=== PATIENT | female | born 1955 | race Caucasian/White ===

== ENCOUNTER 2016-12-28 09:04 | Outpatient (CLI) | payer MEDICAID ==
[~2016-12-28] VITALS: Ht 154.9 cm; Wt 62.7 kg
--- NOTE | ~2016-12-28 | HEMODYNAMI ---
PATIENT:SARAH HARRIS MEDICAL RECORD: [id number] : 59 LOCATION:[facility] ADMISSION DATE: 12/28/16 Generatedon:12/28/201614:38 Patient name: SARAH HARRIS Patient #: [id number] SSN: : 1955 Date of study: 12/28/2016 Page: Of Hemodynamic Procedure Report Patient Data Patient Demographics Procedure consent was obtained First Name: SARAH Gender: Female Last Name: STEVEN : 1955 Middle Initial: H Age: 61 year(s) Patient #: [id number] Race: Additional ID: [id number] Contact details Address: [address] [place] [address] State: [facility]: [place] Zip code: [address] Past Medical History History of disease Date Diagnosis Comments CAD Hypertension Allergies Allergen Reaction Date Comments Reported Penicillins 01/05/2015 Codeine 01/05/2015 Other 06/25/2016 acetominophen, allergy cephalexin,propoxyphene, HCT2,irbesaitan. Other 06/25/2016 Darvocet allergy Other 06/25/2016 Avelox allergy Other 01/05/2015 keflex allergy Admission Admission Data Admission Date: 12/28/2016 Admission Time: 9:04 Height (in.): 60 BSA: 1.59 (m2) Height (cm.): 152.4 BMI: 26.95 (kg/m2) Weight (lbs.): 138 Weight (kg.): 62.6 Lab Results Lab Result Date: 12/28/2016 Lab Result Time: 0:00 Biochemistry Name Units Result Min Max BUN mg/dl 10 --(-*--)-- 7 18 Creatinine mg/dl 0.8 --(-*--)-- 0.6 1.3 CBC Name Units Result Min Max Hemoglobin g/dl 15.3 --(-*--)-- 13.5 17.5 Procedure Procedure Types Cath Procedure Diagnostic Procedure LHC LH w/Coronaries PCI Procedure Coronary Stent Initial Procedure Description Procedure Date Procedure Date: 12/28/2016 Procedure Start Time: 14:06 Procedure End Time: 14:38 Procedure Staff Name Function Yung Blair MD Performing Physician Francis Dexter RT Scrub Leelee Lamas RN Nurse Yusef Ace RT Monitor Chace Connors RN Receiving Weigher Procedure Data Cath Procedure Fluoroscopy Diagnostic fluoroscopy Total fluoroscopy Time: 4.1 time: 4.1 min min Diagnostic fluoroscopy Total fluoroscopy dose: 540 dose: 540 mGy mGy Contrast Material Contrast Material Type Amount (ml) Isovue 300 93 Entry Location Entry Primary Successful Side Size Upsize Upsize Entry Closure Succes sful Closure Location (Fr) 1 (Fr) 2 (Fr) Remarks Device Remarks Femoral Right 5 Fr 6 Fr Vascade artery Short Closure System Estimated blood loss: 10 ml Diagnostic catheters Device Type Used For End Catheter Placement Cordis 5Fr Pigtail LV Angiography Catheter (MP) Cordis 5Fr JL 4.0 Coronary Catheter (MP) Angiography Cordis 5Fr 3DRC Catheter Coronary (MP) Angiography Procedure Complications No complications Procedure Medications Medication Administration Route Dosage Oxygen NC 2 l/min Benadryl I.V. 50 mg Lidocaine 2% added to field 20 Heparin Flush Bag added to field 2 bags (1000units/500ml NS) Versed I.V. 1 mg Fentanyl I.V. 100 mcg Versed I.V. 1 mg Fentanyl I.V. 100 mcg Versed I.V. 1 mg Fentanyl I.V. 100 mcg Heparin Bolus I.V. 4000 units Versed I.V. 1 mg Fentanyl I.V. 50 mcg Versed I.V. 1 mg Fentanyl I.V. 50 mcg Versed I.V. 1 mg 0.9% NaCl I.V. bolus 500 ml Hemodynamics Rest BSA: 1.59 (m2) HGB: 15.3 (g/dl) O2 Consumption: Estimated: 145.18 (ml/min) O2 Co nsumption indexed: Estimated:91.31 (ml/min/m) Heart Rate: 60 (bpm) Snapshots Pre Cath Intra NCS Post Cath Vital Signs Time Heart Resp SPO2 etCO2 [id number] NIBP (mmHg) Rhythm Pain Status Ria tion Rate (ipm) (%) (mmHg) (mmHg) Level (bpm) 13:49:15 62 16 96 0 0 171/92(145) NSR 5 (11) , 10(A ) Very distressing 13:53:31 63 19 98 0 0 153/90(139) NSR 5 (11) , 10(A ) Very distressing 13:57:47 73 20 96 0 0 160/86(138) NSR 5 (11) , 10(A ) Very distressing 14:02:05 71 16 95 0 0 119/69(103) NSR 5 (11) , 10(A ) Very distressing 14:06:15 77 14 98 0 0 117/70(99) NSR 5 (11) , 10(A ) Very distressing 14:10:27 66 16 98 0 0 115/65(95) NSR 5 (11) , 10(A ) Very distressing 14:14:35 70 16 95 0 0 102/70(93) NSR 0 (11) , No 9(A) pain 14:18:42 77 17 96 0 0 94/55(77) NSR 0 (11) , No 9(A) pain 14:22:50 66 16 97 0 0 92/51(64) NSR 0 (11) , No 9(A) pain 14:26:58 67 16 98 0 0 83/45(75) NSR 0 (11) , No 9(A) pain 14:31:02 69 16 98 0 0 86/46(61) NSR 0 (11) , No 10(A ) pain 14:37:19 0 0 106/66(73) NSR 0 (11) , No 10(A ) pain Medications Time Medication Route Dose Verified Delivered Reason Notes Effectiveness by by 13:47:56 Oxygen NC 2 Yung Buffie used for l/min Johnnie Lamas RN procedure 13:48:04 Benadryl I.V. 50 mg Yung Buffie used for Johnnie Lamas RN procedure 13:57:21 Lidocaine 2% added 20ml Yung Buffie for local to vial Johnnie Lamas RN anesthetic field 13:57:27 Heparin Flush added 2 Yung Buffie used for Bag to bags Johnnie Lamas RN procedure (1000units/500ml field NS) 14:03:09 Versed I.V. 1 mg Yung Buffie for sedation Johnnie Lamas RN 14:03:16 Fentanyl I.V. 100 Yung Buffie for sedation mcg Johnnie Lamas RN 14:06:19 Versed I.V. 1 mg Yung Buffie for sedation Johnnie Lamas RN 14:06:22 Fentanyl I.V. 100 Yung Buffie for sedation mcg Johnnie Lamas RN 14:09:15 Versed I.V. 1 mg Yung Buffie for sedation Johnnie Lamas RN 14:09:19 Fentanyl I.V. 100 Yung Buffie for sedation mcg Johnnie Lamas RN 14:12:43 Versed I.V. 1 mg Yung Buffie for sedation Johnnie Lamas RN 14:12:48 Fentanyl I.V. 50 Yung Buffie for sedation mcg Johnnei Lamas RN 14:16:22 Heparin Bolus I.V. 4000 Yung Buffie for verifi ed units Johnnie Lamas RN anticoagulation with dr blair 14:18:01 Versed I.V. 1 mg Yung Buffie for sedation Johnnie Lamas RN 14:18:04 Fentanyl I.V. 50 Yung Buffie for sedation mcg Johnnie Lamas RN 14:21:08 Versed I.V. 1 mg Yung Buffie for sedation Johnnie Lamas RN 14:21:14 0.9% NaCl I.V. 500 Yung Buffie Per physician bolus ml Johnnie Lamas RN Procedure Log Time Note 13:15:54 Chace Connors RN sent for patient. Start room use. 13:26:34 Informed consent obtained and on chart 13:30:01 Time tracking: Regular hours 13:30:06 Plan of Care:Hemodynamics will remain stable., Cardiac rhythm will remain stable., Comfort level will be maintained., Respiratory function will remain adequate., Patient/ family verbilizes understanding of procedure., Procedure tolerated without complication., Recovers from procedure without complications.. 13:37:47 Patient received from Outpatients to [facility] 2 Alert and oriented. Tansferred to table in Supine position. 13:37:48 Warm blankets applied, and yanna hugger turned on for patient comfort. 13:37:49 Warm blankets applied, and yanna hugger turned on for patient comfort. 13:37:50 Correct patient and procedure confirmed by team. 13:37:54 ECG and BP/O2 sat monitors applied to patient. 13:47:56 Oxygen 2 l/min NC was given by Leelee Lamas RN; used for procedure; 13:48:04 Benadryl 50 mg I.V. was given by Leelee Lamas RN; used for procedure; 13:48:05 Vital chart was started 13:48:06 Baseline sample Acquired. 13:48:11 Rhythm: sinus rhythm 13:48:13 Full Disclosure recording started 13:48:28 H&P Date Dictated: 12/26/2016 Within 30 days and on chart., H&P Addendum completed by physician on day of procedure. (MUST COMPLETE FOR ALL OUTPATIENTS). 13:48:28 Pre-procedure instructions explained to patient. 13:48:29 Pre-op teaching completed and patient verbalized understanding. 13:48:30 Family in waiting room. 13:48:32 Patient NPO since Midnight. 13:48:37 Is the patient allergic to Iodine/contrast media? No. 13:48:48 Is patient on blood thinner?Yes 13:48:51 ACC The patient was administered the following blood thiners within the last 24 hours: ACCPlavix 13:48:54 Patient diabetic? No. 13:48:56 Patient not . Patient is over age 55. 13:49:04 Previous problem with sedation/anesthesia? No ? 13:49:05 Snore? Yes 13:49:06 Sleep apnea? No 13:49:08 Deviated septum? No 13:49:08 Opens mouth fully? Yes 13:49:09 Sticks out tongue? Yes 13:49:11 Airway obstruction? No ? 13:49:14 Dentures? Yes IN 13:49:17 Pre procedure: right dorsailis pedis pulse 1+ Palpable, but thready & weak; easily obliterated 13:49:19 Patient pain scale 0/10 ?. 13:49:24 IV patent on arrival in left forearm with 0.9% NaCl at [facility]. 13:49:26 Lab results completed and on chart. 13:49:30 Right groin area was prepped with chlora-prep and draped in sterile fashion 13:49:32 Alarms reviewed by R. N. 13:49:32 Sharps counted by scrub and verified by R.N. 13:49:58 Lab Result : BUN 10 mg/dl 13:49:58 Lab Result : Creatinine 0.8 mg/dl 13:49:58 Lab Result : Hemoglobin 15.3 g/dl 13:50:06 ACC Patient presents with Stable Angina CCS Anginal Class 2--Slight limitation of ordinary activity. 13:50:08 Diagnostic Cath status Elective 13:52:04 ACCPatient has been prescribed/administered the following anti-anginal medication within the last 2 weeks: Beta [place] 13:54:01 Use device set Femoral Dx 13:54:02 Tegaderm 4 x 4 opened to sterile field. 13:54:03 Acist Manifold opened to sterile field. 13:54:04 Acist Hand Control opened to sterile field. 13:54:05 Acist Syringe opened to sterile field. 13:54:06 Bag Decanter opened to sterile field. 13:54:06 Cardinal Cath Pack opened to sterile field. 13:54:11 Terumo 5Fr [place] Sheath opened to sterile field. 13:54:11 St Ze 260cm J .035 wire opened to sterile field. 13:54:13 Cordis Infinity 5Fr Multipack catheter opened to sterile field. 13:57:21 Lidocaine 2% 20ml vial added to field was given by Leelee Lamas RN; for local anesthetic; 13:57:27 Heparin Flush Bag (1000units/500ml NS) 2 bags added to field was given by Leelee Lamas RN; used for procedure; 14:02:31 Physician arrived 14:02:33 --------ALL STOP TIME OUT------ 14:02:35 Final Timeout: patient, procedure, and site verified with staff and physician. All members of the team are in agreement. 14:02:48 Right groin site verified by team. 14:03:03 Sedation plan: IV Moderate Sedation Versed, Fentanyl 14:03:09 Versed 1 mg I.V. was given by Leelee Lamas RN; for sedation; 14:03:16 Fentanyl 100 mcg I.V. was given by Leelee Lamas RN; for sedation; 14:06:19 Versed 1 mg I.V. was given by Leelee Lamas RN; for sedation; 14:06:22 Fentanyl 100 mcg I.V. was given by Leelee Lamas RN; for sedation; 14:06:42 Procedure started. 14:06:46 Local anesthetic to right femoral artery with Lidocaine 2% by Yung Blair MD.INITIAL ACCESS ONLY 14:08:51 Patient Height : 60 inches 14:08:54 Patient Weight : 138 lbs 14:09:15 Versed 1 mg I.V. was given by Leelee Lamas RN; for sedation; 14:09:19 Fentanyl 100 mcg I.V. was given by Leelee Lamas RN; for sedation; 14:10:34 A 5 Fr sheath was inserted into the Right Femoral artery 14:11:09 A Cordis 5Fr Pigtail Catheter (MP) was advanced over the wire and used for LV Angiography. 14:12:02 LV angiography performed. 14:12:03 LV gram done using GABRIEL 14:12:11 EF : 50 % 14:12:28 LV hemodynamics recorded. 14:12:35 Injector settings: Ml/sec: 5, Volume: 15, 14:12:43 Versed 1 mg I.V. was given by Leelee Lamas RN; for sedation; 14:12:46 Catheter removed. 14:12:48 Fentanyl 50 mcg I.V. was given by Leelee Lamas RN; for sedation; 14:13:01 A Cordis 5Fr JL 4.0 Catheter (MP) was advanced over the wire and used for Coronary Angiography. 14:13:42 LCA angiography performed. 14:14:02 Terumo 6Fr [place] Sheath opened to sterile field. 14:14:02 SportsBUZZ BasixCompak Inflation Kit opened to sterile field. 14:14:02 Jessica Whisper J 300cm 0.014 guide wire opened to sterile field. 14:14:22 A Cordis 5Fr 3DRC Catheter (MP) was advanced over the wire and used for Coronary Angiography. 14:15:00 RCA angiography performed. 14:15:22 Cordis 6FR XBLAD 3.5 guide catheter opened to sterile field. 14:15:27 Catheter removed. 14:15:42 ACC PCI Site: [facility] has 70% stenosis. 14:15:44 ACC Pre-intervention MADALYN Flow is 3. 14:15:55 Sheath upsized to a 6 Fr Short. 14:16:01 6 Fr XBLAD 3.5 guide catheter was inserted over the wire 14:16:06 Whisper wire advanced. 14:16:22 Heparin Bolus 4000 units I.V. was given by Leelee Lamas RN; for anticoagulation; verified with dr blair 14:17:39 Wire advanced across lesion. 14:18:01 Versed 1 mg I.V. was given by Leelee Lamas RN; for sedation; 14:18:04 Fentanyl 50 mcg I.V. was given by Leelee Lamas RN; for sedation; 14:19:03 The Medtronic Resolute 3.5 X 12 stent was advanced then removed because of failure to cross lesion 14:20:27 Inflation number: 1 A [employer] Pecos 3.0 X 12 balloon was prepped and advanced across the Prox CX, then inflated to 15 BRUNA for 0:10 (min:sec). 14:21:08 Versed 1 mg I.V. was given by Leelee Lamas RN; for sedation; 14:21:14 0.9% NaCl 500 ml I.V. bolus was given by Leelee Lamas RN; Per physician; 14:21:29 Balloon removed over the wire. 14:22:17 Inflation Number: 2 A Medtronic Resolute 3.5 X 12 stent was prepped and advanced across the Prox CX. The stent was deployed at 21 BRUNA for 0:10 (min:sec). 14:23:18 ACC Post-intervention MADALYN Flow is 3. 14:23:19 Stent catheter was removed intact over wire. 14:23:20 Wire removed. 14:23:21 Guide catheter removed. 14:23:35 Vascade 6/7 Fr Closure Device opened to sterile field. 14:23:48 Sheath removed intact; hemostasis achieved with Vascade Closure System to the Right Femoral artery. 14:23:52 Procedure ended.(Physican Out) 14:25:10 Fluoroscopy time 04.10 minutes. 14:25:15 Flurop Dose total: 540 14:25:15 Fluoroscopy dose: 540 mGy 14:25:19 Contrast amount:Isovue 300 93ml. 14:25:20 Sharps counted by scrub and verified by R.N. 14:25:23 Insertion/operative site no bleeding no hematoma. 14:25:26 Post-op/insertion site Right Femoral artery dressed using a 4 x 4 and Tegaderm. 14:25:27 Post Procedure Pulses reassessed and unchanged 14:25:32 Post-procedure physical assessment completed. ASA score P 2 - A patient with mild systemic disease as per Yung Blair MD. 14:25:48 Post procedure rhythm: unchanged. 14:25:50 Estimated blood loss: 10 ml 14:25:52 Post procedure instruction explained to patient.Patient verbalizes understanding. 14:25:52 Patient needs reinforcement of post procedure teaching. 14:25:53 Procedure and supply charges have been captured, reviewed, submitted and are correct. 14:26:02 Procedure type changed to Cath procedure, Diagnostic procedure, LHC, LHC w/Coronaries, PCI procedure, Coronary Stent Initial 14:26:30 Procedure Complication : No complications 14:37:44 Vital chart was stopped 14:37:45 See physician's report for complete and final results. 14:38:00 Report given to Post Procedure Room. 14:38:04 Patient transfered to Post Procedure Room with Stretcher. 14:38:08 Procedure ended. 14:38:08 Full Disclosure recording stopped 14:38:17 ACC-PCI Only Patient was given prescriptions, or instructed by Yung Blair MD to start/continue the following medications upon discharge: Aspirin, Plavix 14:38:20 End room use (Document Last) Intervention Summary Intervention Notes Time ActionType Lesion and Equipment Action# Pressure Duration Attributes Used 14:19:03 Discard Medtronic Stent Resolute 3.5 X 12 stent 14:20:27 Inflate Prox CX Boyd 1 15 00:10 balloon Sci Pecos 3.0 X 12 balloon 14:22:17 Place stent Prox CX Medtronic 2 21 00:10 Resolute 3.5 X 12 stent Device Usage Item Name Manufacture Quantity Catalog Number Hospital Part Current Mini [facility] Lot# / Charge Number Stock Stock Serial# Code Tegaderm 4 1 [id number] 968173 975202 5 x 4 Acist Acist 1 05847 578203 421874 238129 5 Manifold Medical Systems Inc Acist Hand Acist 1 32286 304452 699397 338198 5 Control Medical Systems Inc Acist Acist 1 37224 104383 796914 362500 20 Syringe Medical Systems Inc Bag Microtek 1 2002S 118097 98987 442226 5 Decanter Medical Inc. Cardinal Cardinal 1 [id number] 175331 39596 128798 5 Spotplex Terumo 5Fr Terumo 1 [id number] 035923 190190 335620 [address] Ze 1 936807 260335 298408 036219 30 260cm J .035 wire Cordis Cardinal 1 [id number] 971357 96325 016569 30 Infinity Health 5Fr Multipack catheter Cordis 5Fr Cardinal 1 [id number] 5 Pigtail Health Catheter (MP) Cordis 5Fr Cardinal 1 [id number] 5 JL 4.0 Health Catheter (MP) Terumo 6Fr Terumo 1 [id number] 367571 347507 683669 40 [place] Sheath Merit Merit 1 [id number] 367301 375753 660290 15 BasixCompak Medical Inflation Kit Jessica Jessica 1 [id number] 092967 573892 670664 5 Whisper J Vascular 300cm 0.014 guide wire Cordis 5Fr Cardinal 1 228678 5 3DRC Health Catheter (MP) Cordis 6FR Cardinal 1 [id number] 043561 928982 839022 10 XBLAD 3.5 Health guide catheter Medtronic Medtronic 1 [id number] 176138 488198 8 [id number] Resolute 3.5 X 12 stent Boyd Sci Boyd 1 [id number] 086401 000798 675667 1 [id number] Paloma [employer] 3.0 X 12 balloon Vascade 6/7 Cardiva 1 [id number] 360464 495940 738939 5 Fr Closure Medical, Device Inc. Signature Audit [place] Stage Time Signature Unsigned Intra-Procedure 12/28/2016 Yusef Ace 2:38:47 PM RT(R) Signatures Monitor : Yusef Ace RT Signature : Date : Time : [place] [id number] [facility] [place] [address]
[~2016-12-28 09:04] MED LIST: AMBIEN10 MG PO; ASPIRIN325 MG PO; ASPIRIN81 MG PO; CELEXA40 MG PO; CHANTIX0.5 MG PO; IMDUR30 MG; ISOSORBIDE MONO30 M1 PO; ISOSORBIDE MONO60 M1 PO; LOPRESSOR50 MG PO; NITRO-DUR0.1 MG TD; PLAVIX75 MG PO; PRILOSEC20 MG PO; PRINIVIL20 MG PO; TENORMIN25 MG PO; ZESTRIL20 MG PO
[2016-12-28] MEDS ORDERED: TOPROL XL50 MG PO (10:34)
[2016-12-28] MEDS ORDERED: EDARBI40 MG PO (10:35)
[2016-12-28 10:41] VITALS: BP 120/77; Ht 154.9 cm; Wt 62.7 kg
[2016-12-28 10:42] LABS: BASOPHILS 0.3 % (0.0-2.0); EOSINOPHILS 3.6 % (0-7); HEMATOCRIT 44.6 % (36.0-48.0); HEMOGLOBIN 15.3 g/dL (12-16); IMMATURE GRANULOCYTES 0.3 % (0-5); LYMPHOCYTES 38.3 % (15-50); MCH 32.3 pg (26.0-34.0); MCHC 34.3 g/dL (31.0-37.0); MCV 94.3 fL (80.0-100.0); MEAN PLATELET VOLUME 9.1 fL (7.4-10.4); MONOCYTES 6.7 % (2-11); NEUTROPHILS 50.8 % (40-80); PLATELET COUNT 352 10x3/uL (130-400); RBC 4.73 10x6/uL (4.00-5.40); RDW 12.8 % (11.5-14.5); WBC 7.8 10x3/uL (4.8-10.8)
[2016-12-28 10:58] LABS: CALC OSMOLALITY 278 mosm/kg (275-300); CALCIUM 9.1 mg/dL (8.5-10.1); CARBON DIOXIDE 29.5 mmol/L (21.0-32.0); CHLORIDE - SERUM 104 mmol/L (98-107); CREATININE - SERUM 0.8 mg/dL (0.6-1.3); GLUCOSE 83 mg/dL (74-106); POTASSIUM - SERUM 4.2 mmol/L (3.5-5.1); SODIUM 141 mmol/L (136-145); UREA NITROGEN 10 mg/dL (7-18); eGFR NON AFRICAN AMERICAN 78 mL/min (90-120)
--- NOTE | 2016-12-28 17:33 | NUR ---
VS TAKEN AND PLACE ON POST OP SHEET
--- NOTE | 2016-12-28 18:59 | NUR ---
181 IV DC WITH CATHER TIP INTACT
--- NOTE | 2016-12-31 14:16 | OP ---
PATIENT NAME: SARAH HARRIS MEDICAL RECORD: [id number] :59 LOCATION:D.CAT ADMISSION DATE: SURGEON: ROSEMARIE SAGE MD DATE OF OPERATION: 12/28/2016 PROCEDURES: 1. PTCA stent left circumflex. 2. Left heart catheterization. 3. Selective coronary angiography. 4. Left ventriculogram. INDICATION: Angina and coronary artery disease. PROCEDURE IN DETAIL: After informed consent was obtained and after detailed explanation of risks, benefits as well as alternative therapies, the patient elected to proceed with angiogram and angioplasty. The right femoral area was prepped and draped in normal sterile fashion. The right femoral artery was cannulated via modified Seldinger technique with placement of a 6-Luxembourgish sheath. All catheters exchanged through this sheath. FINDINGS: The left ventriculogram was performed in standard 30-degree GABRIEL view, reveals good cardiac wall motion throughout all segments. Overall ejection fraction estimated at 50%. SELECTIVE CORONARY ANGIOGRAPHY: 1. Left main is with no significant angiographic disease. 2. Left anterior descending has previously placed stents; these are widely patent with no significant restenosis. No disease elsewise throughout the LAD or its branches. 3. Left circumflex has previously placed stents. There is a hazy area of at least 70% stenosis in the proximal aspect. 4. Right coronary has moderate irregularities, but no flow-limiting stenosis. PTCA STENT OF THE LEFT CIRCUMFLEX: The stent used was a 3.5 x 12 mm Resolute. Result was 0% residual stenosis. OVERALL IMPRESSION: Successful percutaneous transluminal coronary angioplasty stent of the left circumflex going from at least 70% in-stent restenosis to 0% residual stenosis. TRANSINT:[id number] Voice Confirmation ID: [id number] DOCUMENT ID: [id number] ROSEMARIE SAGE MD at 1416 CC: [id number] DICTATION DATE: 12/28/16 1427 MAKE UP OPERATOR HELPER: 12/28/16 2211 [facility] CLI 12/28/[address] [address]
== END 2016-12-28 18:40 | disposition home or self-care (01) ==
LOC: D.CATH 09:04
PROVIDERS: Internal Medicine Interventional Cardiology
DX: I25.119 Atherosclerotic heart disease of native coronary artery with unspecified angina pectoris (principal); I10 Essential (primary) hypertension; J44.9 Chronic obstructive pulmonary disease, unspecified; F17.200 Nicotine dependence, unspecified, uncomplicated

== ENCOUNTER 2017-03-16 14:47 | Emergency (ER) | payer MEDICAID ==
[2016-12-28 10:41] VITALS: BMI 26.1
[~2017-03-16 14:47] MED LIST changes: +EDARBI40 MG PO; +TOPROL XL50 MG PO
[2017-03-16 15:29] LABS: BASOPHILS 0.2 % (0.0-2.0); EOSINOPHILS 2.5 % (0-7); HEMATOCRIT 43.4 % (36.0-48.0); HEMOGLOBIN 15.2 g/dL (12-16); IMMATURE GRANULOCYTES 0.1 % (0-5); MCH 32.5 pg (26.0-34.0); MCV 92.7 fL (80.0-100.0); MEAN PLATELET VOLUME 9.1 fL (7.4-10.4); MONOCYTES 5.6 % (2-11); NEUTROPHILS 70.6 % (40-80); PLATELET COUNT 374 10x3/uL (130-400); RBC 4.68 10x6/uL (4.00-5.40); RDW 12.6 % (11.5-14.5); WBC 10.7 10x3/uL (4.8-10.8)
[2017-03-16 15:53] LABS: ALBUMIN 3.4 g/dL (3.4-5.0); ALKALINE PHOSPHATASE 79 U/L (46-116); ALT (SGPT) 19 U/L (10-68); CALC OSMOLALITY 280 mosm/kg (275-300); CALCIUM 9.4 mg/dL (8.5-10.1); CARBON DIOXIDE 24.5 mmol/L (21.0-32.0); CHLORIDE - SERUM 104 mmol/L (98-107); GLUCOSE 99 mg/dL (74-106); POTASSIUM - SERUM 3.7 mmol/L (3.5-5.1); PROTEIN - SERUM 7.6 g/dL (6.4-8.2); SODIUM 141 mmol/L (136-145); UREA NITROGEN 12 mg/dL (7-18); eGFR NON AFRICAN AMERICAN 60 mL/min (90-120)
[2017-03-16 16:02] LABS: CHOL - HDL RATIO 4.2 ratio (2.3-4.1); CHOLESTEROL, TOTAL 257 mg/dL (0-200); CKMB 1.1 U/L (0.0-3.6); CREATINE KINASE 52 UL (21-215); HDL CHOLESTEROL 62 mg/dL (32-96); LDL CHOLESTEROL 170 mg/dL (0-100); LDL-HDL RATIO 2.7 ratio (1.5-3.5); TRIGLYCERIDE 129 mg/dL (30-200); TROPONIN-I < 0.017 ng/mL (0.000-0.060)
== END 2017-03-16 17:00 | disposition home or self-care (01) ==
LOC: D.ER 14:47
PROVIDERS: Emergency Medicine
DX: I25.10 Atherosclerotic heart disease of native coronary artery without angina pectoris (principal); R07.89 Other chest pain; J44.9 Chronic obstructive pulmonary disease, unspecified; F17.200 Nicotine dependence, unspecified, uncomplicated

== ENCOUNTER 2017-03-20 09:03 | Outpatient (CLI) | payer MEDICAID ==
[~2017-03-20] VITALS: Ht 154.9 cm; Wt 59.1 kg
--- NOTE | ~2017-03-20 | HEMODYNAMI ---
PATIENT:SARAH HARRIS MEDICAL RECORD: [id number] : 59 LOCATION:[facility] ADMISSION DATE: 03/20/17 Generatedon:03/20/201711:00 Patient name: SARAH HARRIS Patient #: [id number] SSN: : 1955 Date of study: 03/20/2017 Page: Of Hemodynamic Procedure Report Patient Data Patient Demographics Procedure consent was obtained First Name: SARAH Gender: Female Last Name: STEVEN : 1955 Middle Initial: H Age: 61 year(s) Patient #: [id number] Race: Additional ID: [id number] Contact details Address: [address] [place] [address] State: [facility]: [place] Zip code: [address] Past Medical History History of disease Date Diagnosis Comments CAD Hypertension Allergies Allergen Reaction Date Comments Reported Penicillins 01/05/2015 Codeine 01/05/2015 Other 06/25/2016 acetominophen, allergy cephalexin,propoxyphene, HCT2,irbesaitan. Other 06/25/2016 Darvocet allergy Other 06/25/2016 Avelox allergy Other 01/05/2015 keflex allergy Admission Admission Data Admission Date: 03/20/2017 Admission Time: 9:03 Procedure Procedure Types Cath Procedure Diagnostic Procedure [facility] w/Coronaries Miscellaneous Procedures Moderate Sedation up to 15 minutes Procedure Description Procedure Date Procedure Date: 03/20/2017 Procedure Start Time: 10:49 Procedure End Time: 10:59 Procedure Staff Name Function Yung Blair MD Performing Physician Dianna Phelps RN Nurse Yusef Ace RT Monitor Damián Mendoza RT Scrub Procedure Data Cath Procedure Fluoroscopy Diagnostic fluoroscopy Total fluoroscopy Time: 0.8 time: 0.8 min min Diagnostic fluoroscopy Total fluoroscopy dose: 213 dose: 213 mGy mGy Contrast Material Contrast Material Type Amount (ml) Isovue 300 59 Entry Location Entry Primary Successful Side Size Upsize Upsize Entry Closure Succes sful Closure Location (Fr) 1 (Fr) 2 (Fr) Remarks Device Remarks Femoral Right 5 Fr Vascade artery Closure System Estimated blood loss: 10 ml Diagnostic catheters Device Type Used For End Catheter Placement Cordis 5Fr Pigtail Procedure Catheter (MP) Cordis 5Fr JL 4.0 Procedure Catheter (MP) Cordis 5Fr 3DRC Catheter Procedure (MP) Procedure Complications No complications Procedure Medications Medication Administration Route Dosage Oxygen NC 2 l/min Heparin Flush Bag added to field 2 bags (1000units/500ml NS) Lidocaine 2% added to field 20 Versed I.V. 1 mg Fentanyl I.V. 50 mcg Versed I.V. 1 mg Fentanyl I.V. 50 mcg Versed I.V. 1 mg Fentanyl I.V. 50 mcg Versed I.V. 1 mg Fentanyl I.V. 50 mcg Versed I.V. 1 mg Fentanyl I.V. 50 mcg Hemodynamics Rest Heart Rate: 56 (bpm) Pressure Samples Time Site Value (mmHg) Purpose Heart Use Rate(bpm) 10:51 LV 95/11,29 Snapshot 69 Snapshots Pre Cath Intra NCS Post Cath Vital Signs Time Heart Resp SPO2 NIBP (mmHg) Rhythm Pain Sedation Rate (ipm) (%) Status Level (bpm) 10:19:05 66 16 98 151/87(125) NSR 0 (11) 10(A) , No pain 10:23:26 56 18 100 161/77(142) NSR 0 (11) 10(A) , No pain 10:27:37 62 18 97 118/73(95) NSR 0 (11) 10(A) , No pain 10:31:47 59 18 99 109/65(80) NSR 0 (11) 10(A) , No pain 10:35:57 63 18 99 109/60(80) NSR 0 (11) 10(A) , No pain 10:40:07 69 16 98 97/55(76) NSR 0 (11) 10(A) , No pain 10:44:09 65 15 99 114/65(84) NSR 0 (11) 10(A) , No pain 10:48:21 73 16 96 89/60(72) NSR 0 (11) 10(A) , No pain 10:52:22 73 18 96 100/60(75) NSR 0 (11) 10(A) , No pain 10:56:24 78 15 94 114/71(83) NSR 0 (11) 10(A) , No pain Medications Time Medication Route Dose Verified Delivered Reason Notes Effec tiveness by by 10:18:09 Oxygen NC 2 Yung Dianna Per l/min Johnnie Phelps RN physician 10:18:16 Heparin Flush added 2 Yung Yung used for Bag to bags Johnnie Blair MD procedure (1000units/500ml field NS) 10:18:23 Lidocaine 2% added 20ml Yung Yung used for to vial Johnnie Blair MD procedure field 10:42:30 Versed I.V. 1 mg Yung Dianna for Johnnie Phelps RN sedation 10:42:37 Fentanyl I.V. 50 Yung Dianna for mcg Johnnie Phelps RN sedation 10:44:28 Versed I.V. 1 mg Yung Dianna for Johnnie Phelps RN sedation 10:44:31 Fentanyl I.V. 50 Yung Dianna for mcg Johnnie Phelps RN sedation 10:46:36 Versed I.V. 1 mg Yung Dianna for Johnnie Phelps RN sedation 10:46:38 Fentanyl I.V. 50 Yung Dianna for mcg Johnnie Phelps RN sedation 10:48:21 Versed I.V. 1 mg Yung Dianna for Johnnie Phelps RN sedation 10:48:24 Fentanyl I.V. 50 Yung Dianna for mcg Johnnie Phelps RN sedation 10:50:24 Versed I.V. 1 mg Yung Dianna for Johnnie Phelps RN sedation 10:50:33 Fentanyl I.V. 50 Yung Dianna for mcg Johnnie Phelps RN sedation Procedure Log Time Note 9:55:09 Damián Mendoza RT(R) sent for patient. Start room use. 10:11:19 Time tracking: Regular hours 10:11:22 Plan of Care:Hemodynamics will remain stable., Cardiac rhythm will remain stable., Comfort level will be maintained., Respiratory function will remain adequate., Patient/ family verbilizes understanding of procedure., Procedure tolerated without complication., Recovers from procedure without complications.. 10:13:37 Patient received from Pre/Post Procedure Room to CCL 2 Alert and oriented. Tansferred to table in Supine position. 10:13:39 Warm blankets applied, and yanna hugger turned on for patient comfort. 10::39 Correct patient and procedure confirmed by team. 10::40 Signed procedure consent form obtained from patient. 10::41 ECG and BP/O2 sat monitors applied to patient. 10::52 Vital chart was started 10:18:09 Oxygen 2 l/min NC was administered by Dianna Phelps RN; Per physician; 10:18:16 Heparin Flush Bag (1000units/500ml NS) 2 bags added to field was administered by Yung Blair MD; used for procedure; 10:18:23 Lidocaine 2% 20ml vial added to field was administered by Yung Blair MD; used for procedure; 10:23:24 Baseline sample Acquired. 10::38 Rhythm: sinus rhythm 10::39 Full Disclosure recording started 10:23:49 H&P Date Dictated: 03/18/2017 Within 30 days and on chart., H&P Addendum completed by physician on day of procedure. (MUST COMPLETE FOR ALL OUTPATIENTS). 10:23:50 Pre-procedure instructions explained to patient. 10:23:50 Pre-op teaching completed and patient verbalized understanding. 10:23:51 Family in waiting room. 10:23:53 Patient NPO since Midnight. 10:23:54 Is the patient allergic to Iodine/contrast media? No. 10:23:56 Is patient on blood thinner?Yes 10:23:58 ACC The patient was administered the following blood thiners within the last 24 hours: ACCPlavix 10:25:35 Patient diabetic? No. 10:25:36 Patient not . Patient is over age 57. 10:25:39 Previous problem with sedation/anesthesia? No ? 10:25:40 Snore? Yes 10:25:41 Sleep apnea? No 10:25:42 Deviated septum? No 10:25:42 Opens mouth fully? Yes 10:25:43 Sticks out tongue? Yes 10:25:45 Airway obstruction? No ? 10:25:48 Dentures? Yes IN 10:25:52 Pre procedure: right dorsailis pedis pulse 1+ Palpable, but thready & weak; easily obliterated 10:26:10 Patient pain scale 0/10 ?. 10:31:26 IV patent on arrival in left forearm with 0.9% NaCl at [facility]. 10::34 Lab results completed and on chart. 10::35 Alarms reviewed by R. N. ::35 Sharps counted by scrub and verified by R.N. 10:31:39 Right groin area was prepped with chlora-prep and draped in sterile fashion 10::55 Zero performed for pressure channel P1 10::56 --------ALL STOP TIME OUT------ 10::57 Final Timeout: patient, procedure, and site verified with staff and physician. All members of the team are in agreement. 10:42:00 Right groin site verified by team. 10:42:04 Physical assessment completed. ASA score P 2 - A patient with mild systemic disease as per Yung Blair MD. 10:42:07 Sedation plan: IV Moderate Sedation Versed, Fentanyl 10:42:30 Versed 1 mg I.V. was administered by Dianna Phelps RN; for sedation; 10:42:37 Fentanyl 50 mcg I.V. was administered by Dianna Phelps RN; for sedation; 10:44:28 Versed 1 mg I.V. was administered by Dianna Phelps RN; for sedation; 10:44:31 Fentanyl 50 mcg I.V. was administered by Dianna Phelps RN; for sedation; 10:44:34 Zero performed for pressure channel P1 10:46:36 Versed 1 mg I.V. was administered by Dianna Phelps RN; for sedation; 10:46:38 Fentanyl 50 mcg I.V. was administered by Dianna Phelps RN; for sedation; 10:48:21 Versed 1 mg I.V. was administered by Dianna Phelps RN; for sedation; 10:48:24 Fentanyl 50 mcg I.V. was administered by Dianna Phelps RN; for sedation; 10:49:18 Use device set Femoral Dx 10:49:20 Tegaderm 4 x 4 opened to sterile field. 10:49:22 Acist Hand Control opened to sterile field. 10:49:22 Acist Manifold opened to sterile field. 10:49:23 Acist Syringe opened to sterile field. 10:49:24 Bag Decanter opened to sterile field. 10:49:24 Medline Cath Pack opened to sterile field. 10:49:24 Terumo 5Fr [place] Sheath opened to sterile field. 10:49:25 St Ze 260cm J .035 wire opened to sterile field. 10:49:26 Diagnostic Infinity 5Fr Multipack catheter opened to sterile field. 10:49:35 Procedure started. 10:49:46 Local anesthetic to right femoral artery with Lidocaine 2% by Yung Blair MD.INITIAL ACCESS ONLY 10:50:24 Versed 1 mg I.V. was administered by Dianna Phelps RN; for sedation; 10:50:33 Fentanyl 50 mcg I.V. was administered by Dianna Phelps RN; for sedation; 10:50:53 A 5 Fr sheath was inserted into the Right Femoral artery 10:51:18 A Cordis 5Fr Pigtail Catheter (MP) was advanced over the wire and used for Procedure. 10:51:44 LV angiography performed. 10:51:45 LV gram done using GABRIEL 10:51:59 EF : 60 % 10:52:08 Injector settings: Ml/sec: 10, Volume: 20, 10:52:10 Catheter removed. 10:52:20 A Cordis 5Fr JL 4.0 Catheter (MP) was advanced over the wire and used for Procedure. 10:52:56 LCA angiography performed. 10:53:54 Catheter removed. 10:53:59 A Cordis 5Fr 3DRC Catheter (MP) was advanced over the wire and used for Procedure. 10:54:12 RCA angiography performed. 10:54:13 Catheter removed. 10:55:24 Sheath removed intact; hemostasis achieved with Vascade Closure System to the Right Femoral artery. 10:55:33 Vascade 5Fr Closure Device opened to sterile field. 10:55:37 Procedure ended.(Physican Out) 10:56:06 Fluoroscopy time 00.80 minutes. 10:56:30 Fluoroscopy dose: 213 mGy 10:56:30 Flurop Dose total: 213 10:56:35 Contrast amount:Isovue 300 59ml. 10:56:36 Sharps counted by scrub and verified by R.N. 10:56:52 Insertion/operative site no bleeding no hematoma. 10:56:55 Post-op/insertion site Right Femoral artery dressed using a 4 x 4 and Tegaderm. 10:56:56 Post Procedure Pulses reassessed and unchanged 10:56:59 Post-procedure physical assessment completed. ASA score P 2 - A patient with mild systemic disease as per Yung Blair MD. 10:57:01 Post procedure rhythm: unchanged. 10:57:03 Estimated blood loss: 10 ml 10:57:05 Post procedure instruction explained to patient.Patient verbalizes understanding. 10:57:05 Patient needs reinforcement of post procedure teaching. 10:57:11 Procedure type changed to Cath procedure, Diagnostic procedure, LHC, LHC w/Coronaries, Miscellaneous Procedures, Moderate Sedation up to 15 minutes 10:57:14 Procedure Complication : No complications 10:57:29 Procedure and supply charges have been captured, reviewed, submitted and are correct. 10:59:12 Vital chart was stopped 10:59:12 See physician's report for complete and final results. 10:59:16 Report given to Pre/Post Procedure Room. 10:59:19 Patient transfered to Pre/Post Procedure Room with Stretcher. 10:59:44 Procedure ended. 10:59:44 Full Disclosure recording stopped 10:59:48 End room use (Document Last) Device Usage Item Name Manufacture Quantity Catalog Number Hospital Part Current Minima l Lot# / Charge Number Stock Stock Serial# Code Tegaderm 4 3M 1 [id number] 144215 5 x 4 Acist Hand Acist 1 23653 756031 047698 073115 5 Control [employer] Inc Acist Acist 1 82507 505170 794974 522838 5 Manifold Medical Systems Inc Acist Acist 1 22241 190006 722849 459096 20 Syringe Medical Systems Inc Bag Microtek 1 2002S 672356 23110 323810 5 Decanter [employer] Inc. Medline Cardinal 1 [id number] 19507 771923 5 Cath Pack Health Terumo 5Fr Terumo 1 [id number] 021098 745659 040502 [address] [place] [address] Ze [address] Ze 1 159807 937711 349862 946044 30 260cm J .035 wire Diagnostic Cardinal 1 [id number] 358398 93268 287122 30 Infinity Health 5Fr Multipack catheter Cordis 5Fr Cardinal 1 [id number] 5 Pigtail Health Catheter (MP) Cordis 5Fr Cardinal 1 488259 5 JL 4.0 Health Catheter (MP) Cordis 5Fr Cardinal 1 820147 5 3D Health Catheter (MP) Vascade Cardiva 1 [id number] 769763 91140 350340 10 5Fr Medical, Closure Inc. Device Signature Audit [place] Stage Time Signature Unsigned Intra-Procedure 03/20/2017 Yusef Ace 11:00:11 AM RT(R) Signatures Monitor : Yusef Ace RT Signature : Date : Time : [id number] [place] [address]
--- NOTE | ~2017-03-20 | OP ---
PATIENT NAME: SARAH HARRIS MEDICAL RECORD: [id number] :59 LOCATION:D[facility] ADMISSION DATE: SURGEON: ROSEMARIE SAGE MD DATE OF OPERATION: 03/20/2017 PROCEDURES: 1. Left heart catheterization. 2. Selective coronary angiography. 3. Left ventriculogram. INDICATION: Angina, coronary artery disease, previous multivessel PTCA stent. PROCEDURE IN DETAIL: After informed consent was obtained and after detailed explanation of risks, benefits as well as alternative therapies, the patient elected to proceed with angiogram and angioplasty. The right femoral area was prepped and draped in normal sterile fashion. The right femoral artery was cannulated via modified Seldinger technique with placement of 6-[place] sheath. All catheters exchanged through this sheath. FINDINGS: The left ventriculogram was performed in standard 30-degree GABRIEL view, reveals good cardiac wall motion throughout all segments. Overall ejection fraction estimated at 60%. SELECTIVE CORONARY ANGIOGRAPHY: 1. Left main showed no significant angiographic disease. 2. Left anterior descending has previously placed stents, these are widely patent with no significant restenosis. No disease elsewise throughout the LAD or its branches. 3. Left circumflex has previously placed stents, these are widely patent with no significant restenosis. No disease elsewise throughout the left circumflex or its branches. 4. The right coronary has previously placed stents, these are widely patent with no significant restenosis. No disease elsewise throughout right coronary or its branches. OVERALL IMPRESSION: No significant restenosis of any the previously placed stents. No disease elsewise. Normal ejection fraction. Center medical management on treatment of noncardiac chest pain. TRANSINT:[id number] Voice Confirmation ID: [id number] DOCUMENT ID: [id number] ROSEMARIE SAGE MD CC: [id number] DICTATION DATE: 03/20/17 1058 DATABASE ADMIN: 03/20/17 [id number] [place] [address]
[2017-03-20 09:21] VITALS: BP 133/75; Ht 154.9 cm; Wt 59.1 kg
[2017-03-20 09:44] LABS: BASOPHILS 0.3 % (0.0-2.0); EOSINOPHILS 3.5 % (0-7); HEMATOCRIT 44.4 % (36.0-48.0); HEMOGLOBIN 15.4 g/dL (12-16); IMMATURE GRANULOCYTES 0.3 % (0-5); LYMPHOCYTES 30.5 % (15-50); MCH 32.6 pg (26.0-34.0); MCHC 34.7 g/dL (31.0-37.0); MCV 94.1 fL (80.0-100.0); MEAN PLATELET VOLUME 9.1 fL (7.4-10.4); MONOCYTES 5.1 % (2-11); NEUTROPHILS 60.3 % (40-80); PLATELET COUNT 380 10x3/uL (130-400); RBC 4.72 10x6/uL (4.00-5.40); RDW 12.5 % (11.5-14.5); WBC 7.7 10x3/uL (4.8-10.8)
[2017-03-20 09:55] LABS: CALC OSMOLALITY 280 mosm/kg (275-300); CALCIUM 9.3 mg/dL (8.5-10.1); CARBON DIOXIDE 25.3 mmol/L (21.0-32.0); CHLORIDE - SERUM 105 mmol/L (98-107); CREATININE - SERUM 0.7 mg/dL (0.6-1.3); GLUCOSE 97 mg/dL (74-106); POTASSIUM - SERUM 4.3 mmol/L (3.5-5.1); SODIUM 140 mmol/L (136-145); UREA NITROGEN 18 mg/dL (7-18); eGFR NON AFRICAN AMERICAN > 90 mL/min (90-120)
--- NOTE | 2017-03-20 12:07 | NUR ---
1115-RIGHT GROIN CDI, NO HEMATOMA OR BLEEDING NOTED, SOFT TO TOUCH 1145- NO CHANGES IN GROIN, SANDWICH AND WATER GIVEN
--- NOTE | 2017-03-20 13:30 | NUR ---
1300-IV D'C WITH CATH TIP INTACT, WRITTEN AND VERBAL INSTRUCTIONS GIVEN TO PT, RX FOR IMDUR GIVEN TO PT. D'C HOME WITH MOM.
== END 2017-03-20 13:20 | disposition home or self-care (01) ==
LOC: D.CATH 09:03
PROVIDERS: Internal Medicine Interventional Cardiology
DX: I25.119 Atherosclerotic heart disease of native coronary artery with unspecified angina pectoris (principal); R06.00 Dyspnea, unspecified; I10 Essential (primary) hypertension; F17.200 Nicotine dependence, unspecified, uncomplicated

== ENCOUNTER 2018-02-07 09:38 | Outpatient (CLI) | payer MEDICARE ==
[~2018-02-07] VITALS: Ht 154.9 cm; Wt 59.1 kg
--- NOTE | ~2018-02-07 | HEMODYNAMI ---
PATIENT:SARAH HARRIS MEDICAL RECORD: [id number] : 59 LOCATION:[facility] ADMISSION DATE: 02/07/18 Generatedon:02/07/201813:47 Patient name: SARAH HARRIS Patient #: [id number] SSN: : 1955 Date of study: 02/07/2018 Page: Of Hemodynamic Procedure Report Patient Data Patient Demographics Procedure consent was obtained First Name: SARAH Gender: Female Last Name: STEVEN : 1955 Middle Initial: H Age: 62 year(s) Patient #: [id number] Race: Additional ID: [id number] Contact details Address: [address] [place] [address] State: [facility]: [place] Zip code: [address] Past Medical History History of disease Date Diagnosis Comments CAD Hypertension Allergies Allergen Reaction Date Comments Reported Penicillins 01/05/2015 Codeine 01/05/2015 Other 06/25/2016 acetominophen, allergy cephalexin,propoxyphene, HCT2,irbesaitan. Other 06/25/2016 Darvocet allergy Other 06/25/2016 Avelox allergy Other 01/05/2015 keflex allergy Other 02/07/2018 avelox,codeine,darvocet-N allergy 100, demerol, keflex,PCN Admission Admission Data Admission Date: 02/07/2018 Admission Time: 9:38 Admit Source: Other Lab Results Lab Result Date: 02/07/2018 Lab Result Time: 11:25 Biochemistry Name Units Result Min Max BUN mg/dl 12 --(-*--)-- 7 18 Creatinine mg/dl 0.9 --(-*--)-- 0.6 1.3 CBC Name Units Result Min Max Hematocrit % 43.8 --(*---)-- 42 54 Hemoglobin g/dl 15.5 --(-*--)-- 13.5 17.5 Procedure Procedure Types Cath Procedure Diagnostic Procedure Sedation Charges Moderate Sedation up to 15 minutes LHC LHC w/Coronaries PCI Procedure Coronary Stent Coronary Stent Initial Procedure Description Procedure Date Procedure Date: 02/07/2018 Procedure Start Time: 13:24 Procedure End Time: 13:44 Procedure Staff Name Function Yung Blair MD Performing Physician Francis Dexter RT Monitor Yusef Ace RT Scrub Chace Connors RN Nurse Procedure Data Cath Procedure Fluoroscopy Diagnostic fluoroscopy Total fluoroscopy Time: 3.8 time: 3.8 min min Diagnostic fluoroscopy Total fluoroscopy dose: 239 dose: 239 mGy mGy Contrast Material Contrast Material Type Amount (ml) Isovue 300 111 Entry Location Entry Primary Successful Side Size Upsize Upsize Entry Closure Succes sful Closure Location (Fr) 1 (Fr) 2 (Fr) Remarks Device Remarks Femoral Right 5 Fr 6 Fr Exoseal artery Short Estimated blood loss: 10 ml Diagnostic catheters Device Type Used For End Catheter Placement MULTIPACK Pigtail 5 Fr Procedure catheter MULTIPACK JL 4.0 5Fr Procedure catheter MULTIPACK 3DRC 5Fr Procedure catheter Procedure Complications No complications Procedure Medications Medication Administration Route Dosage Oxygen NC 2 l/min Heparin Flush Bag added to field 2 bags (1000units/500ml NS) 0.9% NaCl I.V. 100 ml/hr Fentanyl I.V. 50 mcg Versed I.V. 1 mg Fentanyl I.V. 50 mcg Versed I.V. 1 mg Fentanyl I.V. 50 mcg Versed I.V. 1 mg Fentanyl I.V. 50 mcg Versed I.V. 1 mg Fentanyl I.V. 50 mcg Heparin Bolus I.V. 4000 units Fentanyl I.V. 50 mcg Hemodynamics Rest HGB: 15.5 (g/dl) Heart Rate: 59 (bpm) Snapshots Pre Cath Intra NCS Post Cath Vital Signs Time Heart Resp SPO2 etCO2 NIBP (mmHg) Rhythm Pain Sedation Rate (ipm) (%) (mmHg) Status Level (bpm) 13:13:26 61 15 96 0 177/87(151) NSR 0 (11) 10(A) , No pain 13:17:48 54 16 95 29.1 140/72(96) NSR 0 (11) 10(A) , No pain 13:22:12 61 17 98 29.1 141/72(122) NSR 0 (11) 10(A) , No pain 13:26:39 61 16 98 0 100/67(77) NSR 0 (11) 10(A) , No pain 13:31:33 68 16 99 12.6 113/71(96) NSR 0 (11) 10(A) , No pain 13:35:46 67 16 99 29.8 115/64(96) NSR 0 (11) 10(A) , No pain 13:39:59 70 20 99 30.5 113/62(87) NSR 0 (11) 10(A) , No pain 13:41:23 71 14 98 0 113/62(86) NSR 0 (11) 10(A) , No pain Medications Time Medication Route Dose Verified Delivered Reason Notes Effectiveness by by 13:12:40 Oxygen NC 2 Yung Chace Per physician l/min Johnnie Connors RN 13:12:48 Heparin Flush added 2 Yung Chace used for Bag to bags Johnnie Connors RN procedure (1000units/500ml field NS) 13:12:59 0.9% NaCl I.V. 100 Yung Chace Per physician ml/hr Johnnie Connors RN 13:20:27 Fentanyl I.V. 50 Yung Chace for sedation mcg Johnnie Connors RN 13:20:36 Versed I.V. 1 mg Yung Chace for sedation Johnnie Connors RN 13:22:50 Fentanyl I.V. 50 Yung Chace for sedation mcg Johnnie Connors RN 13:23:01 Versed I.V. 1 mg Yung Chace for sedation Johnnie Connors RN 13:25:12 Fentanyl I.V. 50 Yung Chace for sedation mcg Johnnie Connors RN 13:25:17 Versed I.V. 1 mg Yung Chace for sedation Johnnie Connors RN 13:27:34 Fentanyl I.V. 50 Yung Chace for sedation mcg Johnnie Connors RN 13:28:03 Versed I.V. 1 mg Yung Chace for sedation Johnnie Connors RN 13:32:35 Fentanyl I.V. 50 Yung Chace for sedation mcg Johnnie Connors RN 13:34:13 Heparin Bolus I.V. 4000 Yung Chace for units Johnnie Connors RN anticoagulation 13:35:03 Fentanyl I.V. 50 Yung Chace for sedation mcg Tauth MD Connors pipe coremaker Log Time Note 12:53:49 Yusef Ace RT(R) sent for patient. Start room use. 12:58:14 Informed consent obtained and on chart 12:58:20 Admit Source: Other 12:58:48 Diagnostic Cath status Elective 12:58:50 Time tracking: Regular hours 12:58:54 Plan of Care:Hemodynamics will remain stable., Cardiac rhythm will remain stable., Comfort level will be maintained., Respiratory function will remain adequate., Patient/ family verbilizes understanding of procedure., Procedure tolerated without complication., Recovers from procedure without complications.. 12:59:42 H&P Date Dictated: 02/06/2018 Within 30 days and on chart., H&P Addendum completed by physician on day of procedure. (MUST COMPLETE FOR ALL OUTPATIENTS). 13:01:30 Lab Result : Hemoglobin 15.5 g/dl 13:01:30 Lab Result : Hematocrit 43.8 % 13:01:30 Lab Result : BUN 12 mg/dl 13:01:30 Lab Result : Creatinine 0.9 mg/dl 13:08:02 Patient received from Pre/Post Procedure Room to [facility] 3 Alert and oriented. Tansferred to table in Supine position. 13:08:04 Warm blankets applied, and yanna hugger turned on for patient comfort. 13:08:04 Correct patient and procedure confirmed by team. 13:08:05 ECG and BP/O2 sat monitors applied to patient. 13:12:06 Vital chart was started 13:12:40 Oxygen 2 l/min NC was administered by Chace Connors RN; Per physician; 13:12:48 Heparin Flush Bag (1000units/500ml NS) 2 bags added to field was administered by Chace Connors RN; used for procedure; 13:12:59 0.9% NaCl 100 ml/hr I.V. was administered by Chace Connors RN; Per physician; 13:17:33 Baseline sample Acquired. 13:17:39 Rhythm: sinus rhythm 13:17:50 Full Disclosure recording started 13:17:52 Pre-procedure instructions explained to patient. 13:17:52 Pre-op teaching completed and patient verbalized understanding. 13:17:56 Patient NPO since Midnight. 13:18:44 Patient allergic to Other allergyavelox,codeine,darvocet-N 100, demerol, keflex,PCN 13:18:46 Is the patient allergic to Iodine/contrast media? Yes. 13:18:49 Is patient on blood thinner?Yes 13:18:51 ACC The patient was administered the following blood thiners within the last 24 hours: ACCPlavix 13:18:52 Patient diabetic? No. 13:18:55 Previous problem with sedation/anesthesia? No ? 13:18:55 Snore? Yes 13:18:56 Sleep apnea? No 13:18:59 Deviated septum? No 13:19:00 Opens mouth fully? Yes 13:19:02 Sticks out tongue? Yes 13:19:03 Airway obstruction? No ? 13:19:06 Dentures? Yes in tight 13:19:09 Pre procedure: right dorsailis pedis pulse 2+ Normal; easily identifiable; not easily obliterated 13:19:11 Patient pain scale 0/10 ?. 13:19:17 IV patent on arrival in left antecubital with 0.9% NaCl at [facility]. 13:19:18 Lab results completed and on chart. 13:19:19 Lab results completed and on chart. 13:19:21 Right groin area was prepped with chlora-prep and draped in sterile fashion 13:19:22 Alarms reviewed by R. N. 13:19:22 Sharps counted by scrub and verified by R.N. 13:19:25 Use device set Femoral Dx 13:19:25 ACIST Syringe (70007) opened to sterile field. 13:19:26 Bag Decanter (2002S) opened to sterile field. 13:19:26 Medline Cath Pack ([id number]) opened to sterile field. 13:19:27 ACIST Hand Control (05944) opened to sterile field. 13:19:28 ACIST Manifold (81911) opened to sterile field. 13:19:32 Tegaderm 4 x 4 (1626W) opened to sterile field. 13:19:33 PERCUTANEOUS ENTRY 19GA needle opened to sterile field. 13:19:34 SHEATH 5FR [place] (QGO047) opened to sterile field. 13:19:36 DIAGNOSTIC WIRE .035 260cm J wire (195934) opened to sterile field. 13:19:37 DIAGNOSTIC Multipack 5Fr catheter set (JZ5661) opened to sterile field. 13:19:42 Physician arrived ::42 --------ALL STOP TIME OUT------ ::42 Final Timeout: patient, procedure, and site verified with staff and physician. All members of the team are in agreement. 13::44 Right groin site verified by team. 13::46 Physical assessment completed. ASA score P 2 - A patient with mild systemic disease as per Yung Blair MD. 13:19:49 Sedation plan: IV Moderate Sedation Medication:Versed, Fentanyl 13:20:27 Fentanyl 50 mcg I.V. was administered by Chace Connors RN; for sedation; 13:20:36 Versed 1 mg I.V. was administered by Chace Connors RN; for sedation; 13::50 Fentanyl 50 mcg I.V. was administered by Chace Connors RN; for sedation; 13:23:01 Versed 1 mg I.V. was administered by Chace Connors RN; for sedation; 13:23:47 Zero performed for pressure channel P1 13:23:51 Zero performed for pressure channel P1 13:24:09 Procedure started. 13:24:11 Local anesthetic to right femoral artery with Lidocaine 2% by Yung Blair MD.INITIAL ACCESS ONLY 13:24:21 A 5 Fr sheath was inserted into the Right Femoral artery 13:25:12 Fentanyl 50 mcg I.V. was administered by Chace Connors RN; for sedation; 13:25:17 Versed 1 mg I.V. was administered by Chace Connors RN; for sedation; 13:25:35 A MULTIPACK Pigtail 5 Fr catheter was advanced over the wire and used for Procedure. 13:25:37 LV gram done using GABRIEL 13:25:39 Injector settings: Ml/sec: 10, Volume: 20, 13:25:40 LV hemodynamics recorded. 13:26:07 EF : 60 % 13:26:23 Catheter exchanged over wire. 13:26:27 A MULTIPACK JL 4.0 5Fr catheter was advanced over the wire and used for Procedure. 13:27:34 Fentanyl 50 mcg I.V. was administered by Chace Connors RN; for sedation; 13::39 Catheter exchanged over wire. 13::44 A MULTIPACK 3DRC 5Fr catheter was advanced over the wire and used for Procedure. 13:28:03 Versed 1 mg I.V. was administered by Chace Connors RN; for sedation; 13:28:22 RCA angiography performed. 13:29:57 Catheter removed. 13:30:08 SHEATH 6FR [place] (XPT451) opened to sterile field. 13:30:20 GUIDE 6FR HS II SH catheter ([id number]) opened to sterile field. 13:30:30 [place] E[place]ley[place] IVUS Catheter (27027N) opened to sterile field. 13:30:32 INFLATOR Merit BasixCompak (TI3411) opened to sterile field. 13:30:37 EXOSEAL 6Fr (EX600) opened to sterile field. 13:30:44 CHOICE PT Extra Support 182cm wire ([id number]) opened to sterile field. 13:31:39 Sheath upsized to a 6 Fr Short. 13:31:44 6 Fr HS II SH guide catheter was inserted over the wire 13:31:50 CHOICE PT ES wire advanced. 13:31:58 Wire advanced across lesion. 13:32:35 Fentanyl 50 mcg I.V. was administered by Chace Connors RN; for sedation; 13:33:47 IVUS catheter advanced over wire. 13:33:49 IVUS pass to RCA lesion performed. 13:33:49 IVUS catheter removed over wire. 13:34:13 Heparin Bolus 4000 units I.V. was administered by Chace Connors RN; for anticoagulation; 13:34:51 Inflation number: 1 A EUPHORA 3.5 x 15 Balloon ([id number]) was prepped and advanced across the Mid RCA, then inflated to 17 BRUNA for 0:10 (min:sec). 13:34:56 Inflation number: 2 The EUPHORA 3.5 x 15 Balloon ([id number]) was reinflated across the Mid RCA, to 17 BRUNA for 0:10 (min:sec). 13:35:03 Fentanyl 50 mcg I.V. was administered by Chace Connors RN; for sedation; 13:35:10 Inflation number: 3 The EUPHORA 3.5 x 15 Balloon ([id number]) was reinflated across the Mid RCA, to 17 BRUNA for 0:10 (min:sec). 13:36:16 Balloon removed over the wire. 13:38:56 Inflation Number: 4 A ABBIE RX 3.0 x 15 stent ([id number]) was prepped and advanced across the Mid RCA. The stent was deployed at 13 BRUNA for 0:10 (min:sec). 13:39:24 Stent catheter was removed intact over wire. 13:39:25 Wire removed. 13:39:33 Guide catheter removed. 13:39:38 Sheath removed intact; hemostasis achieved with Exoseal to the Right Femoral artery. 13:39:40 Procedure ended.(Physican Out) 13:39:43 Contrast amount:Isovue 300 111ml. 13:39:48 Fluoroscopy time 03.80 minutes. 13:40:01 Fluoroscopy dose: 239 mGy 13:40:01 Flurop Dose total: 239 13:40:03 Sharps counted by scrub and verified by R.N. 13:40:17 Insertion/operative site no bleeding no hematoma. 13:40:20 Post-op/insertion site Right Femoral artery dressed using a 4 x 4 and Tegaderm. 13:40:23 Post right femoral artery:stable, soft, clean and dry 13:40:24 Post Procedure Pulses reassessed and unchanged 13:40:26 Post-procedure physical assessment completed. ASA score P 2 - A patient with mild systemic disease as per Yugn Blair MD. 13:40:28 Post procedure rhythm: unchanged. 13:40:30 Estimated blood loss: 10 ml 13:40:30 Post procedure instruction explained to patient.Patient verbalizes understanding. 13:40:31 Patient needs reinforcement of post procedure teaching. 13:42:47 Procedure type changed to Cath procedure, Diagnostic procedure, Sedation Charges, Moderate Sedation up to 15 minutes, C, [facility] w/Coronaries, PCI procedure, Coronary Stent, Coronary Stent Initial 13:44:09 Procedure and supply charges have been captured, reviewed, submitted and are correct. 13:44:11 Procedure Complication : No complications 13:44:13 Vital chart was stopped 13:44:14 See physician's report for complete and final results. 13:44:16 Report given to Pre/Post Procedure Room. 13:44:18 Patient transfered to Pre/Post Procedure Room with Stretcher. 13:44:20 Procedure ended. 13:44:20 Full Disclosure recording stopped 13:44:36 End room use (Document Last) Intervention Summary Intervention Notes Time ActionType Lesion and Equipment Used Action# Pressure Duration Attributes 13:34:51 Inflate Mid RCA EUPHORA 3.5 x 1 17 00:10 balloon 15 Balloon ([id number]) 13:34:56 Reinflate Mid RCA EUPHORA 3.5 x 2 17 00:10 balloon 15 Balloon ([id number]) 13:35:10 Reinflate Mid RCA EUPHORA 3.5 x 3 17 00:10 balloon 15 Balloon ([id number]) 13:38:56 Place stent Mid RCA ABBIE RX 3.0 x 4 13 00:10 15 stent ([id number]) Device Usage Item Name Manufacture Quantity Catalog Number Hospital Part Current M inimal Lot# / Charge Number Stock Stock Serial# Code ACIST Syringe Acist 1 67889 445037 072396 023698 2 0 (00770) Medical Systems Inc Bag Decanter Microtek 1 2001S 788956 60319 411591 5 (2001S) Medical Inc. Medline Cath Cardinal 1 [id number] 795977 57915 124972 5 Pack Health ([id number]) ACIST Hand Acist 1 54585 375830 642237 193484 5 Control Medical (85088) Systems Inc ACIST Manifold Acist 1 44881 272622 023644 215280 5 (08331) Medical Systems Inc Tegaderm 4 x 4 3M 1 1626W 784299 562310 035894 5 (1626W) PERCUTANEOUS Cook Medical 1 K48844 249065 859831 5 ENTRY 19GA needle SHEATH 5FR Terumo 1 WEW313 796422 051250 195258 4 0 [place] (KOU917) DIAGNOSTIC St Ze 1 041849 193277 558615 361790 3 0 WIRE .035 260cm J wire (238496) DIAGNOSTIC Cardinal 1 HI2215 563119 66821 606398 3 0 Multipack 5Fr Health catheter set (VF1004) MULTIPACK Cardinal 1 498120 5 Pigtail 5 Fr Health catheter MULTIPACK JL Cardinal 1 041013 5 4.0 5Fr Health catheter MULTIPACK 3DRC Cardinal 1 974226 5 5Fr catheter Health SHEATH 6FR Terumo 1 RJB306 047142 738984 378003 4 0 [place] (DVZ817) GUIDE 6FR Medtronic 1 [id number] 795898 32068 950197 1 II SH catheter ([id number]) Pennock Pennock 1 28480J 664693 542525 518757 8 [place] IVUS Catheter (44891A) INFLATOR Merit Merit 1 KQ9131 791766 348880 019564 1 5 [facility] (KO0912) EXOSEAL 6Fr Cardinal 1 EX600 512521 345678 486301 1 0 (EX600) Health CHOICE PT [place] 1 [id number] 598417 802017 831184 5 Extra Support Scientific 182cm wire ([id number]) EUPHORA 3.5 x Medtronic 1 [id number] 475920 706720 662017 5 [id number] 15 Balloon ([id number]) ABBIE RX 3.0 x Medtronic 1 [id number] 255249 5002764 439861 5 [id number] 15 stent ([id number]) Signature Audit Normanna Stage Time Signature Unsigned Intra-Procedure 02/07/2018 Francis Dexter 1:47:25 PM RT(R) Signatures Monitor : Francis Dexter RT Signature : Date : Time : [facility] [address] [place] [address]
--- NOTE | ~2018-02-07 | OP ---
PATIENT NAME: SARAH HARRIS MEDICAL RECORD: [id number] :59 LOCATION:D.CAT ADMISSION DATE: SURGEON: ROSEMARIE SAGE MD DATE OF OPERATION: 02/07/2018 PROCEDURES: 1. PTCA stent to RCA. 2. Intravascular ultrasound to RCA. 3. Left heart catheterization. 4. Selective coronary angiography. 5. Left ventriculogram. INDICATION: Angina and coronary artery disease. PROCEDURE IN DETAIL: After informed consent was obtained and after detailed explanation of risks, benefits as well as alternative therapies, the patient elected to proceed with angiogram and angioplasty. The right femoral area was prepped and draped in normal sterile fashion. The right femoral artery was cannulated via modified Seldinger technique with placement of 6-Greek sheath. All catheters exchanged through this sheath. FINDINGS: Left ventriculogram was performed in the standard 30-degree GABRIEL view reveals good cardiac wall motion throughout all segments. Overall ejection fraction estimated 60%. SELECTIVE CORONARY ANGIOGRAPHY: 1. Left main showed no significant angiographic disease. 2. Left anterior descending has previously placed stents, these are widely patent in the LAD and the diagonal. No significant restenosis. No disease elsewise at the LAD or its branches. 3. The left circumflex has previously placed stents, these are widely patent with no significant restenosis. No disease elsewise at the circumflex or its branches. 4. The right coronary artery has previously placed stents. There is up to 80% in-stent restenosis confirmed by intravascular ultrasound well as 80% after the previously placed stents. PTCA STENT OF THE RCA: The balloon used in the in-stent restenosis was a 3.5. The stent used in the distal aspect was a 3.0 x 15 mm [place]. Result was 0% residual stenosis. OVERALL IMPRESSION: Successful percutaneous transluminal coronary angioplasty stent of the RCA going from 80% initial stenosis to 0% residual. TRANSINT:[id number] Voice Confirmation ID: [id number] DOCUMENT ID: [id number] ROSEMARIE SAGE MD at 1202 CC: [id number] DICTATION DATE: 02/07/18 1343 CAR TESTER: 02/07/18 1349 DEP CLI 02/07/18 [place] [address]
[2018-02-07 11:32] LABS: BASOPHILS 0.3 % (0-2); EOSINOPHILS 2.9 % (0-7); HEMATOCRIT 43.8 % (36.0-48.0); HEMOGLOBIN 15.5 g/dL (12-16); IMMATURE GRANULOCYTES 0.1 % (0-5); LYMPHOCYTES 46.1 % (15-50); MCH 32.6 pg (26.0-34.0); MCHC 35.4 g/dL (31.0-37.0); MEAN PLATELET VOLUME 8.7 fL (7.4-10.4); MONOCYTES 6.3 % (2-11); NEUTROPHILS 44.3 % (40-80); PLATELET COUNT 354 10x3/uL (130-400); RBC 4.76 10x6/uL (4.00-5.40); RDW 12.5 % (11.5-14.5); WBC 6.8 10x3/uL (4.8-10.8)
[2018-02-07 11:34] VITALS: BP 115/72; Ht 154.9 cm; Wt 59.1 kg
[2018-02-07 11:54] LABS: ANION GAP 9.7 mmol/L (8-16); CALCIUM 9.6 mg/dL (8.5-10.1); CARBON DIOXIDE 28.2 mmol/L (21.0-32.0); CREATININE - SERUM 0.9 mg/dL (0.6-1.3); POTASSIUM - SERUM 3.9 mmol/L (3.5-5.1)
== END 2018-02-07 17:40 | disposition home or self-care (01) ==
LOC: D.CATH 09:38
PROVIDERS: Internal Medicine Interventional Cardiology
DX: I25.119 Atherosclerotic heart disease of native coronary artery with unspecified angina pectoris (principal); F17.200 Nicotine dependence, unspecified, uncomplicated; I10 Essential (primary) hypertension; R06.09 Other forms of dyspnea; Z01.812 Encounter for preprocedural laboratory examination
CPT/HCPCS: 93458; 92978; C9600

== ENCOUNTER 2018-07-29 17:40 | Observation (INO) | payer MEDICARE ==
[~2018-07-29] VITALS: Ht 154.9 cm; Wt 60.0 kg
--- NOTE | ~2018-07-29 | OP ---
PATIENT NAME: SARAH HARRIS MEDICAL RECORD: [id number] :59 LOCATION:D.M2 D.2116 ADMISSION DATE:07/29/18 SURGEON: CHRISTIAN CASTILLO MD DATE OF OPERATION: 07/30/2018 PROCEDURE: Left heart catheterization, selective coronary angiography, right femoral artery approach. CATHETERS: A 5-Austrian sheath, 5/4 left and right Sofie, 5/4 pig. The procedure was well tolerated. The patient was returned to loya, sheath removed. ExoSeal device placed. FINDINGS: Left ventriculography in 30-degree GABRIEL view: Normal wall motion, normal systolic function. CORONARY ANATOMY: LEFT MAIN: Left main is free of disease. Area of previous stenting is widely patent. CIRCUMFLEX: Free of disease. Widely patent stent. RIGHT CORONARY ARTERY: Area of stenting and previously PTCA for restenosis widely patent. IMPRESSION: No evidence of restenosis. No progression of [place] tribe disease, normal LV function. TRANSINT:[id number] Voice Confirmation ID: [id number] DOCUMENT ID: [id number] CHRISTIAN CASTILLO MD at 1630 CC: [id number] DICTATION DATE: 07/30/18 1413 RIVER GUIDE: 07/30/18 1420 DIS IN 07/30/18 [place] [id number] [place] [address]
--- NOTE | ~2018-07-29 | HEMODYNAMI ---
PATIENT:SARAH HARRIS MEDICAL RECORD: [id number] : 59 LOCATION:[facility] D.2116 ADMISSION DATE: 07/29/18 Generatedon:07/30/201814:09 Patient name: SARAH HARRIS Patient #: [id number] SSN: : 1955 Date of study: 07/30/2018 Page: Of Hemodynamic Procedure Report Patient Data Patient Demographics Procedure consent was obtained First Name: SARAH Gender: Female Last Name: STEVEN : 1955 Middle Initial: H Age: 63 year(s) Patient #: [id number] Race: Additional ID: [id number] Contact details [address]: [address] [place] [address] State: [place] City: [place] Zip code: [address] Past Medical History History of disease Date Diagnosis Comments CAD Hypertension Allergies Allergen Reaction Date Comments Reported Penicillins 01/05/2015 Codeine 01/05/2015 Other 06/25/2016 acetominophen, allergy cephalexin,propoxyphene, HCT2,irbesaitan. Other 06/25/2016 Darvocet allergy Other 06/25/2016 Avelox allergy Other 01/05/2015 keflex allergy Other 02/07/2018 avelox,codeine,darvocet-N allergy 100, demerol, keflex,PCN Admission Admission Data Admission Date: 07/29/2018 Admission Time: 20:59 Room #: D.2116 Height (in.): 60.63 BSA: 1.58 (m2) Height (cm.): 154 BMI: 25.3 (kg/m2) Weight (lbs.): 132.28 Weight (kg.): 60 Lab Results Lab Result Date: 07/30/2018 Lab Result Time: 0:00 Biochemistry Name Units Result Min Max BUN mg/dl 15 --(--*-)-- 7 18 Creatinine mg/dl 0.8 --(-*--)-- 0.6 1.3 CBC Name Units Result Min Max Hemoglobin g/dl 15.7 --(--*-)-- 13.5 17.5 Procedure Procedure Types Cath Procedure Diagnostic Procedure C [facility] w/Coronaries Procedure Description Procedure Date Procedure Date: 07/30/2018 Procedure Start Time: 13:54 Procedure End Time: 14:09 Procedure Staff Name Function Juan Manuel Hogan MD Performing Physician Edilberto Mendoza RT Monitor Leelee Lamas RN Nurse Addis Au RT Scrub Procedure Data Cath Procedure Fluoroscopy Diagnostic fluoroscopy Total fluoroscopy Time: 1 time: 1 min min Diagnostic fluoroscopy Total fluoroscopy dose: 238 dose: 238 mGy mGy Contrast Material Contrast Material Type Amount (ml) Isovue 300 50 Entry Location Entry Primary Successful Side Size Upsize Upsize Entry Closure Succes sful Closure Location (Fr) 1 (Fr) 2 (Fr) Remarks Device Remarks Femoral Right 5 Fr Exoseal artery Diagnostic catheters Device Type Used For End Catheter Placement MULTIPACK JL 4.0 5Fr Left Coronary catheter Angiography MULTIPACK 3DRC 5Fr Right Coronary catheter Angiography MULTIPACK Pigtail 5 Fr LV Angiography catheter Procedure Complications No complications Procedure Medications Medication Administration Route Dosage Oxygen NC 2 l/min Lidocaine 2% added to field 20 Heparin Flush Bag added to field 2 bags (1000units/500ml NS) 0.9% NaCl I.V. 100 ml/hr Versed I.V. 2 mg Fentanyl I.V. 100 mcg 0.9% NaCl I.V. bolus 500 ml Versed I.V. 2 mg Fentanyl I.V. 100 mcg Versed I.V. 2 mg Fentanyl I.V. 50 mcg Hemodynamics Rest BSA: 1.58 (m2) O2 Consumption: Estimated: 149.3 (ml/min) O2 Consumption indexed: Estimated:94.49 (ml/min/m) Heart Rate: 70 (bpm) Pressure Samples Time Site Value (mmHg) Purpose Heart Use Rate(bpm) 14:02 LV 84/4,8 EDP 88 Gradients Valve Time Site Site Mean SEP/DFP Peak To Heart Use 1 2 (mmHg) (sec/min) Peak Rate (mmHg) (bpm) Aortic 14:02 LV AO 88 Snapshots Pre Cath Intra NCS Post Cath Vital Signs Time Heart Resp SPO2 NIBP Rhythm Pain Sedation Rate (ipm) (%) (mmHg) Status Level (bpm) 13:49:54 81 30 88 99/58(81) NSR 0 (11) 10(A) , No pain 13:54:04 75 14 99 84/45(61) NSR 0 (11) 10(A) , No pain 13:58:05 84 15 99 91/52(67) NSR 0 (11) 9(A) , No pain 14:02:11 87 18 99 90/48(67) NSR 0 (11) 10(A) , No pain 14:08:36 88 16 100 90/50(66) NSR 0 (11) 10(A) , No pain Medications Time Medication Route Dose Verified Delivered Reason Notes Effe ctiveness by by 13:45:20 Oxygen NC 2 Juan Manuel Buffie used for l/min St Riccardo Lamas RN procedure 13:45:43 Lidocaine 2% added 20ml Juan Manuel Juan Manuel for local to vial [facility] anesthetic field MD MINER 13:45:48 Heparin Flush added 2 Juan Manuel Juan Manuel used for Bag to bags [facility] procedure (1000units/500ml field MD MINER NS) 13:45:56 0.9% NaCl I.V. 100 Juan Manuel Buffie Per ml/hr St Riccardo Lamas RN physician 13:54:37 Versed I.V. 2 mg Juan Manuel Buffie for SamiraRiccardo Lamas RN sedation 13:54:42 Fentanyl I.V. 100 Juan Manuel Buffie for [facility] Riccardo Lamas RN sedation 13:57:36 0.9% NaCl I.V. 500 Juan Manuel Buffie Per bolus ml St Riccardo Lamas RN physician 13:57:40 Versed I.V. 2 mg Juan Manuel Buffie for SamiraRiccardo Lamas RN sedation 13:57:43 Fentanyl I.V. 100 Juan Manuel Buffie for [facility] SamiraRiccardo Lamas RN sedation 14:01:12 Versed I.V. 2 mg Juan Manuel Buffie for SamiraRiccardo Lamas RN sedation 14:01:16 Fentanyl I.V. 50 Juan Manuel Buffie for [facility] SamiraRiccardo Lamas RN sedation Procedure Log Time Note 13:22:38 Patient Height : 60.63 inches 13:22:42 Patient Weight : 132.28 lbs 13:23:11 Lab Result : Hemoglobin 15.7 g/dl 13:23:11 Lab Result : Creatinine 0.8 mg/dl 13:23:11 Lab Result : BUN 15 mg/dl 13:23:39 Diagnostic Cath status Elective 13:23:41 Buffie Lamas RN sent for patient. Start room use. 13:23:42 Time tracking: Regular hours (M-F 7:00 - 5:00) 13:23:47 Plan of Care:Hemodynamics will remain stable., Cardiac rhythm will remain stable., Comfort level will be maintained., Respiratory function will remain adequate., Patient/ family verbilizes understanding of procedure., Procedure tolerated without complication., Recovers from procedure without complications.. 13:23:54 Patient received from Med II to [facility] 2 Alert and oriented. Tansferred to table in Supine position. 13:36:16 Warm blankets applied, and yanna hugger turned on for patient comfort. 13:36:17 Correct patient and procedure confirmed by team. 13:36:18 Signed procedure consent form obtained from patient. 13:36:20 ECG and BP/O2 sat monitors applied to patient. 13:36:40 Is patient on blood thinner?Yes 13:36:43 ACC The patient was administered the following blood thiners within the last 24 hours: ACCPlavix 13:36:45 Patient diabetic? No. 13:36:46 ----Pre-sedation anethsthesia assessment.---- 13:36:49 Previous problem with sedation/anesthesia? No ? 13:36:50 Snore? Yes 13:36:52 Sleep apnea? No 13:36:53 Deviated septum? No 13:36:55 Opens mouth fully? Yes 13:36:56 Sticks out tongue? No 13:36:58 Airway obstruction? Yes ? 13:37:00 Airway obstruction? No ? 13:37:05 Dentures? Yes in tight 13:45:20 Oxygen 2 l/min NC was administered by Leelee Lamas RN; used for procedure; 13:45:43 Lidocaine 2% 20ml vial added to field was administered by Juan Manuel Hogan MD; for local anesthetic; 13:45:48 Heparin Flush Bag (1000units/500ml NS) 2 bags added to field was administered by Juan Manuel Hogan MD; used for procedure; 13:45:56 0.9% NaCl 100 ml/hr I.V. was administered by Leelee Lamas RN; Per physician; 13:48:49 Vital chart was started 13:48:50 Baseline sample Acquired. 13:48:52 Rhythm: sinus rhythm 13:48:53 Full Disclosure recording started 13:51:22 H&P Date Dictated: 07/30/2018 Within 30 days and on chart.. 13:51:23 Pre-procedure instructions explained to patient. 13:51:23 Pre-op teaching completed and patient verbalized understanding. 13:51:25 Family in patients room. 13:51:26 Patient NPO since Midnight. 13:51:34 Is the patient allergic to Iodine/contrast media? No. 13:52:09 Pre procedure: right dorsailis pedis pulse 1+ Palpable, but thready & weak; easily obliterated 13:52:13 Patient pain scale 0/10 ?. 13:52:23 [facility] with [facility] 22 gauge IV catheter with 0.9% NaCl at 10ml/hr. 13:52:38 Lab results completed and on chart. 13:52:42 Right groin area was prepped with chlora-prep and draped in sterile fashion 13:52:43 Alarms reviewed by R. N. 13:52:43 Sharps counted by scrub and verified by R.N. 13:52:45 Physician arrived 13:52:46 --------ALL STOP TIME OUT------ 13:52:46 Final Timeout: patient, procedure, and site verified with staff and physician. All members of the team are in agreement. 13:52:48 Right groin site verified by team. 13:52:51 Physical assessment completed. ASA score P 2 - A patient with mild systemic disease as per Juan Manuel Hogan MD. 13:52:56 Sedation plan: IV Moderate Sedation Medication:Versed, Fentanyl 13:53:00 Use device set Femoral Dx 13:53:01 ACIST Syringe (88477) opened to sterile field. 13:53:02 Bag Decanter (2002) opened to sterile field. 13:53:02 Medline Cath Pack ([id number]) opened to sterile field. 13:53:04 DIAGNOSTIC WIRE .035 260cm J wire (096520) opened to sterile field. 13:53:05 ACIST Hand Control (13300) opened to sterile field. 13:53:05 ACIST Manifold (06756) opened to sterile field. 13:53:06 DIAGNOSTIC Multipack 5Fr catheter set (EM3373) opened to sterile field. 13:53:07 Tegaderm 4 x 4 (1626W) opened to sterile field. 13:53:10 SHEATH Prelude 5Fr 0.035 ([id number]-6N-[id number]) opened to sterile field. 13:53:14 Procedure started. 13:54:37 Versed 2 mg I.V. was administered by Leelee Lamas RN; for sedation; 13:54:42 Fentanyl 100 mcg I.V. was administered by Leelee Lamas RN; for sedation; 13:54:57 Local anesthetic to right femoral artery with Lidocaine 2% by Juan Manuel Hogan MD.INITIAL ACCESS ONLY 13:56:00 A 5 Fr sheath was inserted into the Right Femoral artery 13:56:56 Zero performed for pressure channel P1 13:57:36 0.9% NaCl 500 ml I.V. bolus was administered by Leelee Lamas RN; Per physician; 13:57:39 A MULTIPACK JL 4.0 5Fr catheter was advanced over the wire and used for Left Coronary Angiography. 13:57:40 Versed 2 mg I.V. was administered by Leelee Lamas RN; for sedation; 13:57:43 Fentanyl 100 mcg I.V. was administered by Leelee Lamas RN; for sedation; 13:58:13 LCA angiography performed. 13:59:48 Catheter removed. 13:59:56 A MULTIPACK 3DRC 5Fr catheter was advanced over the wire and used for Right Coronary Angiography. 14:00:43 RCA angiography performed. 14:00:50 Catheter removed. 14:01:04 A MULTIPACK Pigtail 5 Fr catheter was advanced over the wire and used for LV Angiography. 14:01:12 Versed 2 mg I.V. was administered by Leelee Lamas RN; for sedation; 14:01:16 Fentanyl 50 mcg I.V. was administered by Leelee Lamas RN; for sedation; 14:02:10 LV angiography performed. 14:02:12 LV gram done using GABRIEL 14:02:13 LV hemodynamics recorded. 14:02:27 EF : 55 % 14:02:28 Catheter removed. 14:02:34 EXOSEAL 5Fr (EX500) opened to sterile field. 14:02:38 PERCUTANEOUS ENTRY 19GA needle opened to sterile field. 14:03:18 Sheath removed intact; hemostasis achieved with Exoseal to the Right Femoral artery. 14:03:21 Procedure ended.(Physican Out) 14:03:36 Fluoroscopy time 01.00 minutes. 14:03:41 Fluoroscopy dose: 238 mGy 14:03:41 Flurop Dose total: 238 14:03:45 Contrast amount:Isovue 300 50ml. 14:03:46 Sharps counted by scrub and verified by R.N. 14:03:47 Insertion/operative site no bleeding no hematoma. 14:03:49 Post-op/insertion site Right Femoral artery dressed using a 4 x 4 and Tegaderm. 14:03:53 Post right femoral artery:stable 14:03:55 Post Procedure Pulses reassessed and unchanged 14:03:57 Post procedure: right dorsailis pedis pulse 1+ Palpable, but thready & weak; easily obliterated. 14:04:00 Post procedure rhythm: sinus rhythm 14:04:03 Procedure and supply charges have been captured, reviewed, submitted and are correct. 14:04:28 Procedure Complication : No complications 14:04:31 Vital chart was stopped 14:04:31 See physician's report for complete and final results. 14:05:02 Report given to PCU. 14:05:06 Patient transfered to PCU with Bed. 14:09:17 Procedure ended. 14:09:17 Full Disclosure recording stopped 14:09:22 End room use (Document Last) Device Usage Item Name Manufacture Quantity Catalog Number Hospital Part Current M inimal Lot# / Charge Number Stock Stock Serial# Code ACIST Syringe Acist 1 38179 935888 271919 144961 2 0 (92941) [employer] Bag Decanter Microtek 1 403669 83536 036347 5 () Medical Inc. Medline Cath Cardinal 1 [id number] 718982 61308 237187 5 Pack Health ([id number]) DIAGNOSTIC WIRE St Ze 1 276185 841766 785589 436953 3 0 .035 260cm J wire (547994) ACIST Hand Acist 1 27254 505680 272355 845668 5 Control (37575) [employer] ACIST Manifold Acist 1 11472 176540 840410 466998 5 (49969) [employer] DIAGNOSTIC Cardinal 1 PW5091 142444 83558 832512 3 0 Multipack 5Fr Health catheter set (JD5612) Tegaderm 4 x 4 3M 1 1626W 801074 653266 173608 5 (1626W) SHEATH Prelude Merit 1 [id number] 229274 495656 496080 5 5Fr 0.035 Medical ([id number]-8Z-23-035) MULTIPACK JL Cardinal 1 [id number] 5 4.0 5Fr Health catheter MULTIPACK 3DRC Cardinal 1 349214 5 5Fr catheter Health MULTIPACK Cardinal 1 750169 5 Pigtail 5 Fr Health catheter EXOSEAL 5Fr Cardinal 1 EX500 999070 771111 322457 1 0 (EX500) Health PERCUTANEOUS [employer] 1 N05369 191999 060673 5 ENTRY 19GA needle Signature Audit [place] Stage Time Signature Unsigned Intra-Procedure 07/30/2018 Edilberto STAUFFER(Elfego) 2:09:43 PM Signatures Monitor : Edilberto STAUFFER Signature : Date : Time : [place] [address] [place] [address]
--- NOTE | ~2018-07-29 | DS ---
PATIENT:SARAH HARRIS :59 MEDICAL RECORD: [id number] DISCHARGE SUMMARY ADMISSION DATE: 07/29/18 DISCHARGE DATE: 07/30/18 DATE OF ADMISSION: 07/29/2018 DATE OF DISCHARGE: 07/30/2018 PROBLEM LIST: 1. Chest pain. 2. Hypertension. 3. Dyslipidemia. BRIEF HISTORY AND HOSPITAL COURSE: Admitted with chest pain, reminiscent of her previous unstable angina, underwent diagnostic angiography, which showed no evidence of restenosis. No evidence of progression of any disease. Discharged home in good condition. ACTIVITY: As tolerated. DIET: AHA diet. MEDICATIONS: Same prior to admission. TRANSINT:[id number] Voice Confirmation ID: [id number] DOCUMENT ID: [id number] CHRISTIAN CASTILLO MD at 0834 CC: [id number] DICTATION DATE: 08/21/18 1445 CIRCLE CUTTING SAW OPERATOR: 08/21/18 1504 DIS IN 07/30/18 [place] [id number]
[~2018-07-29 17:40] MED LIST changes: +CELEXA20 MG PO; -CELEXA40 MG PO; +NITROQUICK0.4 MG SL; +NORVASC10 MG PO
[2018-07-29 18:18] LABS: BASOPHILS 0.4 % (0-2); EOSINOPHILS 3.2 % (0-7); HEMATOCRIT 43.5 % (36.0-48.0); HEMOGLOBIN 15.7 g/dL (12-16); IMMATURE GRANULOCYTES 0.1 % (0-5); LYMPHOCYTES 40.5 % (15-50); MCH 33.1 pg (26.0-34.0); MCHC 36.1 g/dL (31.0-37.0); MCV 91.6 fL (80.0-100.0); MONOCYTES 6.3 % (2-11); NEUTROPHILS 49.5 % (40-80); PLATELET COUNT 359 10x3/uL (130-400); RBC 4.75 10x6/uL (4.00-5.40); RDW 12.9 % (11.5-14.5)
[2018-07-29 18:46] LABS: ALBUMIN 3.5 g/dL (3.4-5.0); ALKALINE PHOSPHATASE 64 U/L (46-116); ALT (SGPT) 17 U/L (10-68); BILIRUBIN - TOTAL 0.29 mg/dL (0.2-1.3); CALC OSMOLALITY 277 mosm/kg (275-300); CALCIUM 8.9 mg/dL (8.5-10.1); CARBON DIOXIDE 27.4 mmol/L (21.0-32.0); CHLORIDE - SERUM 105 mmol/L (98-107); CREATININE - SERUM 0.8 mg/dL (0.6-1.3); GLUCOSE 87 mg/dL (74-106); POTASSIUM - SERUM 3.8 mmol/L (3.5-5.1); PROTEIN - SERUM 7.3 g/dL (6.4-8.2); SODIUM 139 mmol/L (136-145); UREA NITROGEN 15 mg/dL (7-18); eGFR NON AFRICAN AMERICAN 77 mL/min (90-120)
[2018-07-29 18:57] VITALS: BP 155/92
[2018-07-29 19:01] LABS: CKMB 1.3 U/L (0.0-3.6); CREATINE KINASE 61 UL (21-215)
[2018-07-29 19:18] LABS: TROPONIN-I < 0.017 ng/mL (0.000-0.060)
[2018-07-29 20:41] VITALS: BP 106/73
[2018-07-29 21:42] LABS: CKMB 1.2 U/L (0.0-3.6); CREATINE KINASE 53 UL (21-215)
[2018-07-29 21:46] LABS: TROPONIN-I < 0.017 ng/mL (0.000-0.060)
[2018-07-30] VITALS: BP 137/65
[2018-07-30 03:48] LABS: CKMB 1.4 U/L (0.0-3.6); CREATINE KINASE 55 UL (21-215)
[2018-07-30 03:57] LABS: TROPONIN-I < 0.017 ng/mL (0.000-0.060)
[2018-07-30 04:00] VITALS: BP 100/61
[2018-07-30 05:38] VITALS: BP 137/65; Ht 154.9 cm; Wt 60.0 kg
[2018-07-30 07:36] VITALS: BP 108/61
[2018-07-30 08:55] LABS: BASOPHILS 0.3 % (0-2); EOSINOPHILS 4.4 % (0-7); HEMATOCRIT 41.8 % (36.0-48.0); HEMOGLOBIN 14.7 g/dL (12-16); IMMATURE GRANULOCYTES 0.1 % (0-5); LYMPHOCYTES 42.8 % (15-50); MCH 32.8 pg (26.0-34.0); MCHC 35.2 g/dL (31.0-37.0); MCV 93.3 fL (80.0-100.0); MEAN PLATELET VOLUME 9.2 fL (7.4-10.4); MONOCYTES 8.6 % (2-11); NEUTROPHILS 43.8 % (40-80); PLATELET COUNT 336 10x3/uL (130-400); RBC 4.48 10x6/uL (4.00-5.40); RDW 13.4 % (11.5-14.5); WBC 7.8 10x3/uL (4.8-10.8)
[2018-07-30 09:04] LABS: CALC OSMOLALITY 283 mosm/kg (275-300); CALCIUM 8.6 mg/dL (8.5-10.1); CARBON DIOXIDE 28.5 mmol/L (21.0-32.0); CHLORIDE - SERUM 107 mmol/L (98-107); CREATININE - SERUM 0.8 mg/dL (0.6-1.3); GLUCOSE 81 mg/dL (74-106); POTASSIUM - SERUM 3.8 mmol/L (3.5-5.1); SODIUM 143 mmol/L (136-145); UREA NITROGEN 12 mg/dL (7-18); eGFR NON AFRICAN AMERICAN 77 mL/min (90-120)
[2018-07-30 11:30] VITALS: BP 91/58
== END 2018-07-30 17:03 | disposition home or self-care (01) ==
LOC: D.ER 17:40 → D.M2 20:59 → OBSVTIME 20:59 → D.EDHOLD 20:59 → D.M2 21:35
PROVIDERS: Family Medicine; Internal Medicine Interventional Cardiology
DX: R07.9 Chest pain, unspecified (principal); I25.10 Atherosclerotic heart disease of native coronary artery without angina pectoris; Z95.5 Presence of coronary angioplasty implant and graft; I10 Essential (primary) hypertension

== ENCOUNTER 2019-04-08 08:28 | Outpatient (CLI) | payer MEDICARE ==
[~2019-04-08] VITALS: Ht 154.9 cm; Wt 61.4 kg
--- NOTE | ~2019-04-08 | HEMODYNAMI ---
PATIENT:SARAH HARRIS MEDICAL RECORD: [id number] : 59 LOCATION:[facility] ADMISSION DATE: 04/08/19 Generatedon:04/08/201911:24 Patient name: SARAH HARRIS Patient #: [id number] SSN: : 1955 Date of study: 04/08/2019 Page: Of Hemodynamic Procedure Report Patient Data Patient Demographics Procedure consent was obtained First Name: SARAH Gender: Female Last Name: STEVEN : 1955 Middle Initial: H Age: 64 year(s) Patient #: [id number] Race: Additional ID: [id number] Contact details Address: [address] [place] [address] State: [facility]: [place] Zip code: [address] Past Medical History History of disease Date Diagnosis Comments CAD Hypertension Allergies Allergen Reaction Date Comments Reported Penicillins 01/05/2015 Codeine 01/05/2015 Other 06/25/2016 acetominophen, allergy cephalexin,propoxyphene, HCT2,irbesaitan. Other 06/25/2016 Darvocet allergy Other 06/25/2016 Avelox allergy Other 01/05/2015 keflex allergy Other 02/07/2018 avelox,codeine,darvocet-N allergy 100, demerol, keflex,PCN Other 04/08/2019 see chart allergy Admission Admission Data Admission Date: 04/08/2019 Admission Time: 8:28 Lab Results Lab Result Date: 04/08/2019 Lab Result Time: 0:00 Biochemistry Name Units Result Min Max BUN mg/dl 15 --(--*-)-- 7 18 Creatinine mg/dl 0.9 --(-*--)-- 0.6 1.3 CBC Name Units Result Min Max Hemoglobin g/dl 17.3 --(---*)-- 13.5 17.5 Procedure Procedure Types Cath Procedure Diagnostic Procedure LHC LHC w/Coronaries FFR/IVUS FFR Initial FFR Additional Sedation Charges Moderate Sedation up to 15 minutes PCI Procedure Coronary Stent Coronary Stent Initial Procedure Description Procedure Date Procedure Date: 04/08/2019 Procedure Start Time: 11:00 Procedure End Time: 11:22 Procedure Staff Name Function Yung Blair MD Performing Physician Addis Au RT Monitor Velma Fields RT Scrub Neha Tellez RN Nurse Procedure Data Cath Procedure Fluoroscopy Diagnostic fluoroscopy Total fluoroscopy Time: 4.7 time: 4.7 min min Diagnostic fluoroscopy Total fluoroscopy dose: 548 dose: 548 mGy mGy Contrast Material Contrast Material Type Amount (ml) Isovue 300 82 Entry Location Entry Primary Successful Side Size Upsize Upsize Entry Closure Succes sful Closure Location (Fr) 1 (Fr) 2 (Fr) Remarks Device Remarks Femoral Right 5 Fr 6 Fr Exoseal artery Short Estimated blood loss: 10 ml Diagnostic catheters Device Type Used For End Catheter Placement MULTIPACK Pigtail 5 Fr Procedure catheter MULTIPACK JL 4.0 5Fr Procedure catheter MULTIPACK 3DRC 5Fr Right Coronary catheter Angiography Procedure Complications No complications Procedure Medications Medication Administration Route Dosage 0.9% NaCl I.V. 100 ml/hr Oxygen etCO2 Nasal cannula 2 l/min Lidocaine 2% added to field 20 Heparin Flush Bag added to field 2 bags (1000units/500ml NS) Versed I.V. 2 mg Fentanyl I.V. 50 mcg Versed I.V. 2 mg Fentanyl I.V. 50 mcg Versed I.V. 2 mg Fentanyl I.V. 50 mcg Versed I.V. 1 mg Fentanyl I.V. 50 mcg Heparin Bolus I.V. 4000 units Versed I.V. 1 mg Fentanyl I.V. 100 mcg Hemodynamics Rest HGB: 17.3 (g/dl) Heart Rate: 58 (bpm) Pressure Samples Time Site Value (mmHg) Purpose Heart Use Rate(bpm) 11:05 LV 79/5,6 Snapshot 66 11:05 AO 113/61(82) Pullback 65 11:05 LV 12/6,10 Pullback 65 Gradients Valve Time Site 1 Site 2 Mean SEP/DFP Peak To Heart Use (mmHg) (sec/min) Peak Rate (mmHg) (bpm) Aortic 11:05 LV AO 0 7 0 65 12/6,10 113/61(82) Calculations Valve P-P Mean Valve Index Valve Source Name Gradient Area Flow (cm2) Aortic 0 0 0 0 Snapshots Pre Cath Intra NCS Post Cath Vital Signs Time Heart Resp SPO2 etCO2 NIBP (mmHg) Rhythm Pain Sedation Rate (ipm) (%) (mmHg) Status Level (bpm) 10:36:21 48 7 97 28.3 Measuring SB 0 (11) 10(A) , No pain 10:40:31 50 11 98 28.3 162/82(105) SB 0 (11) 10(A) , No pain 10:45:24 61 18 96 26.1 94/34(51) NSR 0 (11) 10(A) , No pain 10:49:50 60 12 93 27.6 120/72(92) NSR 0 (11) 10(A) , No pain 10:53:52 62 17 96 23.1 130/62(82) NSR 0 (11) 10(A) , No pain 10:57:58 57 13 97 26.8 115/55(86) NSR 0 (11) 10(A) , No pain 11:01:55 61 15 98 29 106/61(82) NSR 0 (11) 10(A) , No pain 11:06:24 63 17 98 29.8 123/65(90) NSR 0 (11) 10(A) , No pain 11:10:32 62 15 98 23.8 99/54(80) NSR 0 (11) 10(A) , No pain 11:14:36 69 16 98 37.2 107/57(81) NSR 0 (11) 10(A) , No pain 11:18:37 73 17 98 35.8 114/62(80) NSR 0 (11) 10(A) , No pain 11:22:45 66 23 99 30.5 99/59(85) NSR 0 (11) 10(A) , No pain Medications Time Medication Route Dose Verified Delivered Reason Notes Effectiveness by by 10:34:43 0.9% NaCl I.V. 100 Yung Neha used for ml/hr Johnnie Tellez docket clerk 10:34:49 Oxygen etCO2 2 Yung Neha used for Nasal l/min Johnnie Tellez procedure cannula RN 10:34:54 Lidocaine 2% added 20ml Yung Barragan for local to vial Johnnie Blair MD anesthetic field 10:34:59 Heparin Flush added 2 Yung Barragan used for Bag to bags Johnnie Blair MD procedure (1000units/500ml field NS) 10:52:41 Versed I.V. 2 mg Yung Neha for sedation Johnnie Tellez RN 10:52:46 Fentanyl I.V. 50 Yung Neha for sedation mcg Johnnie Tellez RN 10:57:26 Versed I.V. 2 mg Yung Neha for sedation Johnnie Tellez RN 10:57:38 Fentanyl I.V. 50 Yung Neha for sedation mcg Johnnie Tellez RN 11:02:34 Versed I.V. 2 mg Yung Neha for sedation Johnnie Tellez RN 11:02:45 Fentanyl I.V. 50 Yung Neha for sedation mcg Johnnie Tellez RN 11:06:52 Versed I.V. 1 mg Yung Neha for sedation Johnnie Tellez RN 11:07:00 Fentanyl I.V. 50 Yung Neha for sedation mcg Johnnie Tellez RN 11:10:48 Heparin Bolus I.V. 4000 Yung Neha for verif ied units Johnnie Tellez anticoagulation with Dr. GUILLERMINA Blair 11:12:03 Versed I.V. 1 mg Yung Neha for sedation Johnnie Tellez RN 11:12:13 Fentanyl I.V. 100 Yung Neha for sedation mcg Johnnie Tellez RN Procedure Log Time Note 10:25:07 Diagnostic Cath Status : Elective 10:25:27 Velma Fields RT(R) sent for patient. Start room use. 10:25:28 Time tracking: Regular hours (M-F 7:00 - 5:00) 10:25:33 Plan of Care:Hemodynamics will remain stable., Cardiac rhythm will remain stable., Comfort level will be maintained., Respiratory function will remain adequate., Patient/ family verbilizes understanding of procedure., Procedure tolerated without complication., Recovers from procedure without complications.. 10:34:31 Vital chart was started 10:34:43 0.9% NaCl 100 ml/hr I.V. was administered by Neha Tellez RN; used for procedure; 10:34:49 Oxygen 2 l/min etCO2 Nasal cannula was administered by Neha Tellez RN; used for procedure; 10:34:54 Lidocaine 2% 20ml vial added to field was administered by Yung Blair MD; for local anesthetic; 10:34:59 Heparin Flush Bag (1000units/500ml NS) 2 bags added to field was administered by Yung Blair MD; used for procedure; 10:40:32 Patient received from Pre/Post Procedure Room to CCL 2 Alert and oriented. Tansferred to table in Supine position. 10:40:33 Warm blankets applied, and yanna hugger turned on for patient comfort. 10:40:37 Correct patient and procedure confirmed by team. 10:40:41 Signed procedure consent form obtained from patient. 10:40:42 ECG and BP/O2 sat monitors applied to patient. 10:40:43 Baseline sample Acquired. 10:40:52 Full Disclosure recording started 10:41:04 H&P Date Dictated: 04/07/2019 Within 30 days and on chart., H&P Addendum completed by physician on day of procedure. (MUST COMPLETE FOR ALL OUTPATIENTS). 10:41:06 Pre-procedure instructions explained to patient. 10:41:08 Family in waiting room. 10:41:10 Patient NPO since Midnight. 10:41:48 Patient allergic to Other allergysee chart 10:41:52 Is the patient allergic to Iodine/contrast media? No. 10:41:53 Was the patient premedicated? Yes 10:41:55 Is patient on blood thinner?Yes 10:41:58 ACC The patient was administered the following blood thiners within the last 24 hours: ACCPlavix 10:42:01 Patient diabetic? No. 10:42:07 Snore? Yes 10:42:09 Sleep apnea? No 10:42:16 Dentures? Yes in tight 10:44:10 Pre procedure: right dorsailis pedis pulse 1+ Palpable, but thready & weak; easily obliterated 10:44:15 Patient pain scale 0/10 ?. 10:44:24 IV patent on arrival in left forearm with 0.9% NaCl at [facility]. 10:47:08 Lab Result : BUN 15 mg/dl 10:47:08 Lab Result : Creatinine 0.9 mg/dl 10:47:08 Lab Result : Hemoglobin 17.3 g/dl 10:47:12 Lab results completed and on chart. 10:47:16 Right groin area was prepped with chlora-prep and draped in sterile fashion 10:47:17 Alarms reviewed by R. N. 10:47:17 Sharps counted by scrub and verified by R.N. 10:47:20 Physician paged 10:51:56 Physician arrived 10:51:57 --------ALL STOP TIME OUT------ 10:51:57 Final Timeout: patient, procedure, and site verified with staff and physician. All members of the team are in agreement. 10:51:59 Right groin site verified by team. 10:52:04 Maximum allowable Isovue 300 dose 300ml. Physician notified. (300ml for normal creatinines. For patients with creatinine of 1.7 or higher multiply weight(kg) x 5 divided by creatinine.) 10:52:09 Fire Safety Assessment: A--An alcohol-based skin anteseptic being used preoperatively., C--Open oxygen or nitrous oxide is being used., D--An ESU, laser, or fiber-optic light is being used. 10:52:11 Physical assessment completed. ASA score P 2 - A patient with mild systemic disease as per Yung Blair MD. 10:52:16 Sedation plan: IV Moderate Sedation Medication:Versed, Fentanyl 10:52:41 Versed 2 mg I.V. was administered by Neha Tellez RN; for sedation; 10:52:46 Fentanyl 50 mcg I.V. was administered by Neha Tellez RN; for sedation; 10:57:26 Versed 2 mg I.V. was administered by Neha Tellez RN; for sedation; 10:57:31 Zero performed for pressure channel P1 10:57:38 Fentanyl 50 mcg I.V. was administered by Neha Tellez RN; for sedation; 10:57:59 Use device set Femoral Dx 10:58:00 ACIST Syringe (03362) opened to sterile field. 10:58:01 Bag Decanter () opened to sterile field. 10:58:01 Medline Cath Pack ([id number]) opened to sterile field. 10:58:02 DIAGNOSTIC WIRE .035 260cm J wire (940279) opened to sterile field. 10:58:04 ACIST Hand Control (70029) opened to sterile field. 10:58:04 ACIST Manifold (64971) opened to sterile field. 10:58:05 DIAGNOSTIC Multipack 5Fr catheter set (EF4803) opened to sterile field. 10:58:07 SHEATH 5FR [place] (NYE699) opened to sterile field. 10:58:10 Tegaderm 4 x 4 (1626W) opened to sterile field. 11:00:08 Procedure started. 11:00:15 Local anesthetic to right femoral artery with Lidocaine 2% by Yung Blair MD.INITIAL ACCESS ONLY 11:02:34 Versed 2 mg I.V. was administered by Neha Tellez RN; for sedation; 11:02:45 Fentanyl 50 mcg I.V. was administered by Neha Tellez RN; for sedation; 11:04:55 A 5 Fr sheath was inserted into the Right Femoral artery 11:05:18 A MULTIPACK Pigtail 5 Fr catheter was advanced over the wire and used for Procedure. 11:05:22 LV angiography performed. 11:05:45 EF : 50 % 11:05:46 Catheter removed. 11:05:56 A MULTIPACK JL 4.0 5Fr catheter was advanced over the wire and used for Procedure. 11:06:04 LCA angiography performed. 11:06:52 Versed 1 mg I.V. was administered by Neha Tellez RN; for sedation; 11:07:00 Fentanyl 50 mcg I.V. was administered by Neha Tellez RN; for sedation; 11:07:51 Catheter removed. 11:08:12 A MULTIPACK 3DRC 5Fr catheter was advanced over the wire and used for Right Coronary Angiography. 11:08:15 Catheter removed. 11:09:41 SHEATH 6FR [place] (AHW083) opened to sterile field. 11:10:07 GUIDE 6FR XBLAD 3.5 catheter ([id number]) opened to sterile field. 11:10:08 INFLATOR Merit BasixCompak (II1920) opened to sterile field. 11:10:09 [place] Verrata Plus pressure wire (76050I) opened to sterile field. 11:10:11 GUIDE 6FR 3DRC catheter (EG42WNT) opened to sterile field. 11:10:28 Proceeding to intervention. 11:10:48 Heparin Bolus 4000 units I.V. was administered by Neha Tellez RN; for anticoagulation; verified with Dr. Blair 11:10:53 Sheath upsized to a 6 Fr Short. 11:11:00 6 Fr 3DRC guide catheter was inserted over the wire 11:11:06 FFR/IFR wire advanced. 11:12:03 Versed 1 mg I.V. was administered by Neha Tellez RN; for sedation; 11:12:13 Fentanyl 100 mcg I.V. was administered by Neha Tellez RN; for sedation; 11:12:21 Wire removed. 11:12:23 Guide Catheter removed. 11:13:04 6 Fr XBLAD3.5 guide catheter was inserted over the wire 11:14:05 FFR/IFR wire advanced. 11:15:11 LAD lesion measured at .97 with IFR 11:15:17 Wire removed. 11:15:37 CHOICE PT Extra Support 182cm wire ([id number]) opened to sterile field. 11:16:22 choice pt ex to diag wire advanced. 11:16:24 Wire advanced across lesion. 11:17:24 Place stent Inflation Number: 1 A ABBIE RX 2.0 x 8 stent ([id number]) was prepped and advanced across the 1st Diag. The stent was deployed at 13 BRUNA for 0:06 (min:sec). 11:17:50 EXOSEAL 6Fr (EX600) opened to sterile field. 11:18:00 Wire removed. 11:18:01 Stent catheter was removed intact over wire. 11:18:03 Guide catheter removed. 11:18:34 Sheath removed intact; hemostasis achieved with Exoseal to the Right Femoral artery. 11:18:37 Procedure ended.(Physican Out) 11:18:48 Fluoroscopy time 04.70 minutes. 11:18:52 Flurop Dose total: 548 11:18:52 Fluoroscopy dose: 548 mGy 11:18:56 Contrast amount:Isovue 300 82ml. 11:18:58 Sharps counted by scrub and verified by R.N. 11:21:00 Wire redirected to diag. 11:21:02 Insertion/operative site no bleeding no hematoma. 11:21:07 Post-op/insertion site Right Femoral artery dressed using a 4 x 4 and Tegaderm. 11:21:11 Post Procedure Pulses reassessed and unchanged 11:21:14 Post-procedure physical assessment completed. ASA score P 2 - A patient with mild systemic disease as per Yung Blair MD. 11:21:20 Post procedure rhythm: unchanged. 11:21:24 Estimated blood loss: 10 ml 11:21:25 Post procedure instruction explained to patient.Patient verbalizes understanding. 11:21:57 Procedure type changed to Cath procedure, Diagnostic procedure, LHC, LHC w/Coronaries, FFR/IVUS, FFR Initial, FFR Additional, Sedation Charges, Moderate Sedation up to 15 minutes, PCI procedure, Coronary Stent, Coronary Stent Initial 11:21:58 Procedure and supply charges have been captured, reviewed, submitted and are correct. 11:22:22 Procedure Complication : No complications 11:22:26 Vital chart was stopped 11:22:27 See physician's report for complete and final results. 11:22:28 Report given to Pre/Post Procedure Room. 11:22:31 Patient transfered to Pre/Post Procedure Room with Stretcher. 11:22:34 Procedure ended. 11:22:34 Full Disclosure recording stopped 11:22:37 End room use (Document Last) 11:22:43 ACC-PCI Only Patient was given prescriptions, or instructed by Yung Blair MD to start/continue the following medications upon discharge: Plavix Intervention Summary Intervention Notes Time ActionType Lesion and Equipment Used Action# Pressure Duration Attributes 11:17:24 Place stent 1st Diag ABBIE RX 2.0 x 1 13 00:06 8 stent ([id number]) Device Usage Item Name Manufacture Quantity Catalog Number Hospital Part Current Minimal Lot# / Charge Number Stock Stock Serial# Code ACIST Syringe Acist 1 88891 564920 289781 510666 20 (31221) Medical Systems Inc Bag Decanter Microtek 1 725948 91364 160606 5 () Medical Inc. Medline Cath Medline 1 [id number] 725960 05489 516566 5 Pack ([id number]) DIAGNOSTIC St Ze 1 340329 882432 617593 071312 30 WIRE .035 260cm J wire (109619) ACIST Hand Acist 1 87912 569479 319113 826259 5 Control Medical (19307) Systems Inc ACIST Manifold Acist 1 31028 167592 437342 688838 5 (76468) Medical Systems Inc DIAGNOSTIC Cardinal 1 ZP4524 594744 39019 194237 30 Multipack 5Fr Health catheter set (UK6753) SHEATH 5FR Terumo 1 TRP441 449571 077496 392121 5 [place] (MTP476) Tegaderm 4 x 4 3M 1 1626W 347681 732336 730712 5 (1626W) MULTIPACK Cardinal 1 268423 5 Pigtail 5 Fr Health catheter MULTIPACK JL Cardinal 1 947558 5 4.0 5Fr Health catheter MULTIPACK 3DRC Cardinal 1 995110 5 5Fr catheter Health SHEATH 6FR Terumo 1 [id number] 322104 359946 052288 40 [place] (HOP875) GUIDE 6FR Cardinal 1 [id number] 322030 717277 203218 10 XBLAD 3.5 Health catheter ([id number]) INFLATOR Merit Merit 1 [id number] 685219 855873 739625 15 cloud[facility] (GR7506) [place] 1 00242I 808451 285128999 001559 5 Verrata Plus pressure wire (25844K) GUIDE 6FR 3DRC Medtronic 1 [id number] 459711 024835 459087 1 catheter (UN78RBC) CHOICE PT [place] 1 [id number] 090802 314875 349754 5 Extra Support Scientific 182cm wire ([id number]) ABBIE RX 2.0 x Medtronic 1 [id number] 294805 8490788 075649 5 [id number] 8 stent ([id number]) EXOSEAL 6Fr Cardinal 1 EX600 775010 771992 794997 10 (EX600) Health Signature Audit [place] Stage Time Signature Unsigned Intra-Procedure 04/08/2019 Addis Au 11:24:09 AM RT(R) Signatures Monitor : Addis Au Signature : RT Date : Time : [facility] [address] [place] [address]
[2019-04-08] MEDS ORDERED: TOPROL XL100 MG PO (08:43)
[2019-04-08] MEDS ORDERED: HYDRALAZINE HCL50 MG PO (08:44)
[2019-04-08] MEDS ORDERED: CARDURA2 MG PO (08:45)
[2019-04-08 08:58] VITALS: BP 134/79; Ht 154.9 cm; Wt 61.4 kg
[2019-04-08 09:05] LABS: BASOPHILS 0.4 % (0-2); EOSINOPHILS 5.9 % (0-7); HEMATOCRIT 49.1 % (36.0-48.0); HEMOGLOBIN 17.3 g/dL (12-16); IMMATURE GRANULOCYTES 0.1 % (0-5); LYMPHOCYTES 29.2 % (15-50); MCH 32.5 pg (26.0-34.0); MCHC 35.2 g/dL (31.0-37.0); MCV 92.3 fL (80.0-100.0); MEAN PLATELET VOLUME 9.1 fL (7.4-10.4); MONOCYTES 6.2 % (2-11); NEUTROPHILS 58.2 % (40-80); PLATELET COUNT 376 10x3/uL (130-400); RBC 5.32 10x6/uL (4.00-5.40); RDW 12.9 % (11.5-14.5); WBC 7.4 10x3/uL (4.8-10.8)
[2019-04-08 09:09] LABS: ANION GAP 13.5 mmol/L (8-16); CALCIUM 10.2 mg/dL (8.5-10.1); CARBON DIOXIDE 26.1 mmol/L (21.0-32.0); CREATININE - SERUM 0.9 mg/dL (0.6-1.3); POTASSIUM - SERUM 4.6 mmol/L (3.5-5.1)
--- NOTE | 2019-04-08 11:30 | NUR ---
PATIENT ARRIVED TO ROOM, CONNECTED TO MONITORS. VSS ON ROOM AIR. RIGHT GROIN DRESSING IS CDI, NO S/S OF BLEEDING OR HEMATOMA. NO C/O PAIN, NUMBNESS, OR TINGLING. WILL CONTINUE TO MONITOR.
--- NOTE | 2019-04-08 11:45 | NUR ---
PATIENT AWAKE, FAMILY PRESENT AT BEDSIDE. VSS ON ROOM AIR. RIGHT GROIN DRESSING IS CDI, NO S/S OF BLEEDING OR HEMATOMA. TOLERATING PO FLUIDS, NO N/V.
--- NOTE | 2019-04-08 12:15 | NUR ---
PATIENT AWAKE, VSS ON ROOM AIR. RIGHT GROIN DRESSING IS CDI, NO S/S OF BLEEDING OR HEMATOMA. ASSISTED PATIENT WITH BEDPAN, VOIDED WITHOUT DIFFICULTY.
--- NOTE | 2019-04-08 12:45 | NUR ---
PATIENT AWAKE, GIVEN TURKEY SANDWICH PER REQUEST. VSS ON ROOM AIR. RIGHT GROIN DRESSING IS CDI, NO S/S OF BLEEDING OR HEMATOMA. NO C/O PAIN, NUMBNESS, OR TINGLING.
--- NOTE | 2019-04-08 13:15 | NUR ---
PATIENT RESTING, VSS ON ROOM AIR. RIGHT GROIN DRESSING IS CDI, NO S/S OF BLEEDING OR HEMATOMA. NO C/O PAIN, NUMBNESS, OR TINGLING.
--- NOTE | 2019-04-08 13:45 | NUR ---
PATIENT RESTING, VSS ON ROOM AIR. RIGHT GROIN DRESSING IS CDI, NO S/S OF BLEEDING OR HEMATOMA. NO C/O PAIN, NUMBNESS, OR TINGLING. NO N/V.
--- NOTE | 2019-04-08 14:15 | NUR ---
PATIENT VOIDED PER BEDPAN. VSS ON ROOM AIR. HEAD OF BED ELEVATED TO 30 DEGREES, RIGHT GROIN DRESSING IS CDI, NO S/S OF BLEEDING OR HEMATOMA. NO C/O PAIN, NUMBNESS, OR TINGLING. FAMILY PRESENT AT BEDSIDE.
--- NOTE | 2019-04-08 14:45 | NUR ---
HEAD OF BED AT 90 DEGREES. RIGHT GROIN DRESSING IS CDI, NO S/S OF BLEEDING OR HEMATOMA. NO C/O PAIN, NUMBNESS, OR TINGLING. VSS ON ROOM AIR. MOTHER PRESENT AT BEDSIDE.
--- NOTE | 2019-04-08 15:00 | NUR ---
HEAD OF BED AT 90 DEGREES, RIGHT GROIN DRESSING IS CDI, NO S/S OF BLEEDING OR HEMATOMA. IV REMOVED. WRITTEN AND VERBAL INSTRUCTIONS REGARDING DISCHARGE INSTRUCTIONS AND MEDICATION COMPLIANCE GIVEN TO PATIENT AND MOTHER - BOTH VERBALIZE UNDERSTANDING. VSS ON ROOM AIR.
--- NOTE | 2019-04-08 15:10 | NUR ---
PATIENT TRANSPORTED VIA WHEELCHAIR TO CAR WITH MOTHER DRIVING, ALL BELONGINGS SENT WITH PATIENT.
--- NOTE | 2019-04-10 16:41 | OP ---
PATIENT NAME: SARAH HARRIS MEDICAL RECORD: [id number] :59 LOCATION:D.CAT ADMISSION DATE: SURGEON: ROSEMARIE SAGE MD DATE OF OPERATION: 04/08/2019 PROCEDURES: 1. PTCA stent LAD diagonal. 2. IFR RCA. 3. IFR LAD. 4. Left heart catheterization. 5. Selective coronary angiography. 6. Left ventriculogram. INDICATION: Angina and coronary artery disease. PROCEDURE IN DETAIL: After informed consent was obtained and after a detailed description of risks, benefits as well as alternative therapies, the patient elected to proceed with angiogram and angioplasty. The right femoral area was prepped and draped in normal sterile fashion. Right femoral artery was cannulated via modified Seldinger technique with placement of 6-[place] sheath. All catheters exchanged through this sheath. FINDINGS: Left ventriculogram was performed in standard 30-degree GABRIEL view, reveals good cardiac wall motion, ejection fraction preserved at 50%. SELECTIVE CORONARY ANGIOGRAPHY: 1. Left main is with no significant angiographic disease. 2. Left anterior descending has previously placed stents in the LAD and diagonal. The diagonal has 90% stenosis after the previously placed stents. LAD has a questionable stenosis in the mid vessel that is restenosis, but IFR was normal. 3. The right coronary artery has previously placed stents. There is a questionable area of restenosis proximally, but IFR was normal. PTCA STENT OF THE LAD DIAGONAL: The stent used was a 2.0 x 8 mm [place]. Result was 0% residual stenosis. OVERALL IMPRESSION: Successful percutaneous transluminal coronary angioplasty stent of the left anterior descending diagonal going from 90% initial stenosis to 0% residual. TRANSINT:[id number] Voice Confirmation ID: [id number] DOCUMENT ID: [id number] ROSEMARIE SAGE MD at 1641 CC: [id number] DICTATION DATE: 04/08/19 1122 DATA COLLECTION INTERVIEWER: 04/08/19 1132 [facility] CLI 04/08/19 [place] [id number]
== END 2019-04-08 15:10 ==
LOC: D.CATH 08:28
PROVIDERS: ATTEND Internal Medicine Interventional Cardiology
DX: I25.119 Atherosclerotic heart disease of native coronary artery with unspecified angina pectoris (principal)
CPT/HCPCS: 93458; C9600

== ENCOUNTER → 2019-12-10 08:00 | Outpatient (CLI) | payer MEDICARE ==
[2019-04-08 08:58] VITALS: BMI 25.5
[~2019-12-10 08:00] MED LIST changes: +CARDURA2 MG PO; +HYDRALAZINE HCL50 MG PO; +TOPROL XL100 MG PO
== END | disposition home or self-care (01) ==
LOC: D.MAMMO 08:00
PROVIDERS: ATTEND Family Medicine
DX: Z12.31 Encounter for screening mammogram for malignant neoplasm of breast (principal)